=== PATIENT | female | born 1970 | race Caucasian/White ===

== ENCOUNTER 2017-08-31 01:27 | Inpatient (IN) | payer OTHER ==
--- NOTE | 2017-08-31 01:43 | PDOC ---
History of Present Illness - General History Source: Patient Exam Limitations: No Limitations - History of Present Illness Initial Comments: 08/31/17 02:13 The patient is a 47 year old female with past medical history of bilateral breast cancer and uterine cancer (w/ hysterectomy) presents to the emergency department with cold symptoms. The patient reports symptoms of dyspnea, excess thirst, dry cough. The patient reports baseline of chills but reports more than usual since the symptoms started. The patient reports not having much to eat today secondary to nothing taste right. The patient states her sons been sick recently. The patient has bilateral breast cancer and states has had 3 round of chemo, last chemo 7 days ago and states she has a scheduled mastectomy in December. Patient denies taking any medication. Patient denies headache and dizziness. Patient denies chest pain, diaphoresis, palpitations. Patient denies nausea, vomiting, diarrhea, and constipation. Patient denies dysuria, frequency, urgency, and hematuria. Allergies: None reported. Past Surgical History: hysterectomy. Social History: Non-smoker. Denies alcohol or drug use. PCP: Dr. Dee Miller <Melanie Desouza - Last Filed: 08/31/17 04:12> <Della Araiza - Last Filed: 08/31/17 04:33> - General Stated Complaint: FEVER Time Seen by Provider: 08/31/17 01:43 Past History <Melanie Desouza - Last Filed: 08/31/17 04:12> <Della Araiza - Last Filed: 08/31/17 04:33> - Past Medical History Allergies/Adverse Reactions: Allergies Allergy/AdvReac Type Severity Reaction Status Date / Time No Known Allergies Allergy Verified 08/31/17 01:46 Home Medications: Ambulatory Orders Alprazolam [Xanax] 0.5 mg PO DAILY 08/31/17 Dexamethasone [Decadron] 0 mg PO DAILY 08/31/17 Pegfilgrastim [Neulasta] 6 mg SQ Q7D 08/31/17 Review of Systems - Review of Systems Able to Perform ROS?: Yes Comments:: 08/31/17 02:17 GENERAL/CONSTITUTIONAL: (+) subjective fever and chills. No weakness. HEAD, EYES, EARS, NOSE AND THROAT: No change in vision. No ear pain or discharge. No sore throat. CARDIOVASCULAR: No chest pain (+) mild shortness of breath. RESPIRATORY: (+) cough, No wheezing, or hemoptysis. GASTROINTESTINAL: No nausea, vomiting, diarrhea or constipation. GENITOURINARY: No dysuria, frequency, or change in urination. MUSCULOSKELETAL: No joint or muscle swelling or pain. No neck or back pain. SKIN: No rash NEUROLOGIC: No headache, vertigo, loss of consciousness, or change in strength/ sensation. ENDOCRINE: (+) increased thirst. No abnormal weight change. HEMATOLOGIC/LYMPHATIC: No anemia, easy bleeding, or history of blood clots. ALLERGIC/IMMUNOLOGIC: No hives or skin allergy. <Melanie Desouza - Last Filed: 08/31/17 04:12> *Physical Exam - Vital Signs Last Vital Signs Temp Pulse Resp BP Pulse Ox 100.0 F H 150 H 22 107/83 93 L 08/31/17 01:46 08/31/17 01:46 08/31/17 01:46 08/31/17 01:46 08/31/17 01:46 - Physical Exam Comments: 08/31/17 02:17 GENERAL: Awake, alert, and fully oriented, in no acute distress HEAD: No signs of trauma EYES: PERRLA, EOMI, sclera anicteric, conjunctiva clear ENT: Auricles normal inspection, hearing grossly normal, nares patent, oropharynx clear without exudates. Moist mucosa NECK: Normal ROM, supple, no lymphadenopathy, JVD, or masses LUNGS:(+) crackles . Breath sounds equal, clear to auscultation bilaterally. No wheezes. HEART: Regular rate and rhythm, normal S1 and S2, no murmurs, rubs or gallops ABDOMEN: Soft, nontender, normoactive bowel sounds. No guarding, no rebound. No masses EXTREMITIES: Normal range of motion, no edema. No clubbing or cyanosis. No cords, erythema, or tenderness NEUROLOGICAL: Cranial nerves II through XII grossly intact. Normal speech, normal gait SKIN: Warm, Dry, normal turgor, no rashes or lesions noted. <Melanie Desouza - Last Filed: 08/31/17 04:12> ED Treatment Course - LABORATORY CBC & Chemistry Diagram: 08/31/17 02:10 08/31/17 02:10 <Melanie Desouza - Last Filed: 08/31/17 04:12> - LABORATORY CBC & Chemistry Diagram: 08/31/17 02:10 08/31/17 02:10 <Della Araiza - Last Filed: 08/31/17 04:33> Medical Decision Making - Medical Decision Making 08/31/17 02:28 vent. rate: 140 bpm TX interval: 122 ms QRS duration: 74 ms sinus tachycardia possible left atrial enlargement Documentation prepared by Melanie Desouza, acting as medical practitioners for Della Araiza MD. <Melanie Desouza - Last Filed: 08/31/17 04:12> - Medical Decision Making 08/31/17 03:27 Pt comes with fever. She is a breast cancer patient who received chemotherapy over the past few weeks. No other complaints. Pt is tachycardic and dehydrated. Hydrated and treated with antipyretics. Pt will be admitted for zosyn/vanc and further eval. 08/31/17 03:34 Pt's individual small group instructor Dr. Sol Lazcano ([facility] [place]) was called and electronic resources librarian doc will call back. Hospitalist agrees to the admission. 08/31/17 03:[address] Zapata, who tells me that pt's AST and ALT are elevated. Alk phos: was 198, so it is slightly bumped up. He will let Dr. Lazcano know pt is going to be admitted. 08/31/17 04:32 Pt went to a telemetry isolation bed. Viral respiratory panel sent from the ER. <Della Araiza - Last Filed: 08/31/17 04:33> *DC/Admit/Observation/Transfer - Attestations Scribe Attestion: 08/31/17 02:22 Documentation prepared by Melanie Desouza, acting as medical practitioners for Della Araiza MD. <Melanie Desouza - Last Filed: 08/31/17 04:12> - Discharge Dispostion Decision to Admit order: Yes <Della Araiza - Last Filed: 08/31/17 04:33> Diagnosis at time of Disposition: Neutropenic fever - Discharge Dispostion Condition at time of disposition: Guarded
[2017-08-31 01:49] VITALS: BMI 24.7
[2017-08-31] MEDS ORDERED: SODIUM CHLORIDE 0.9% 500 ML INFUS.BAG IV ONE (01:50)
[2017-08-31] MEDS ORDERED: ACETAMINOPHEN 1000 MG/100 ML VIAL (NON FORMULARY) IVPB ONE (01:55)
[2017-08-31 02:34] LABS: HEMATOCRIT 30.1 % (32.4-45.2); HEMOGLOBIN 10.8 GM/dL (10.7-15.3); MCH 30.4 pg (25.7-33.7); MCHC 35.8 g/dl (32.0-36.0); MEAN CELL VOLUME 84.9 fl (80-96); MEAN PLT VOLUME 7.1 fl (7.5-11.1); PLATELET COUNT 159 K/MM3 (134-434); RBC 3.54 M/mm3 (3.60-5.2); RDW 18.3 % (11.6-15.6)
[2017-08-31 03:06] LABS: ALBUMIN 3.6 g/dl (3.4-5.0); ALK PHOS 228 U/L (45-117); ANION GAP 9 (8-16); BILIRUBIN,TOTAL 0.4 mg/dL (0.2-1.0); BLOOD UREA NITROGEN 7 mg/dL (7-18); CALCIUM 8.1 mg/dL (8.5-10.1); CHLORIDE 103 mmol/L (98-107); CO2 23 mmol/L (21-32); CREATININE 0.6 mg/dL (0.55-1.02); GLUCOSE,RANDOM 158 mg/dL (74-106); POTASSIUM 4.3 mmol/L (3.5-5.1); SGOT/AST 128 U/L (15-37); SGPT/ALT 132 U/L (12-78); SODIUM 135 mmol/L (136-145); TOT PROT 6.7 g/dl (6.4-8.2)
[2017-08-31] MEDS ORDERED: VANCOMYCIN 1,000 MG in DEXTROSE 5%-WATER - 250 ML IVPB ONE (03:15)
[2017-08-31] MEDS ORDERED: PIPERACILLIN/TAZOB 3.375 GM 3.375 GM in DEXTROSE 5%-WATER - 50 ML IVPB ONE (03:15)
[2017-08-31] MEDS ORDERED: PIPERACILLIN/TAZOB 3.375 GM 3.375 GM/50 ML BAG IVPB ONE (03:16)
[2017-08-31] MEDS ORDERED: VANCOMYCIN 1 GRAM (PRE-DOCKED) 1,000 MG/250 ML BAG IVPB ONE (03:28)
[2017-08-31] MEDS ORDERED: SODIUM CHLORIDE 1,000 ML IV STA ×3 (03:36→03:37)
--- NOTE | 2017-08-31 03:42 | PN ---
Teaching Attending Note Name of Resident: Manjula Rivas ATTENDING PHYSICIAN STATEMENT I saw and evaluated the patient. I reviewed the resident's note and discussed the case with the resident. I agree with the resident's findings and plan as documented. SUBJECTIVE: 47 yo F with pmhx. of bilateral breast ca who presents dyspnea, cough, and chills. States she had chemo 7 days ago, and recieved Neulasta. Denies any Nausea, Vomiting, or diarrhea. No Dysuri, or urinary frequency, urgency, or hematouria. No chest pain or pressure. States she recieved Neulasta 27 hours after her last chemo. OBJECTIVE: Physical: VS: Vital Signs Period Temp Pulse Resp BP Sys/Lilly Pulse Ox Last 24 Hr 100.0 F 150 22 107/83 93 GEN: NAD, Resting in bed, AA0X3 HEENT: NCAT, PERRL, Throat without erythema or exudates CARD: RRR S1, S2 RESP: CTAB ABD: BSX4, NTD to palpation EXT: - C/C/E CBCD WBC 1.0 K/mm3 (4.0-10.0) L* 08/31/17 02:10 RBC 3.54 M/mm3 (3.60-5.2) L 08/31/17 02:10 Hgb 10.8 GM/dL (10.7-15.3) 08/31/17 02:10 Hct 30.1 % (32.4-45.2) L 08/31/17 02:10 MCV 84.9 fl (80-96) 08/31/17 02:10 MCHC 35.8 g/dl (32.0-36.0) 08/31/17 02:10 RDW 18.3 % (11.6-15.6) H 08/31/17 02:10 Plt Count 159 K/MM3 (134-434) 08/31/17 02:10 MPV 7.1 fl (7.5-11.1) L 08/31/17 02:10 CMP Sodium 135 mmol/L (136-145) L 08/31/17 02:10 Potassium 4.3 mmol/L (3.5-5.1) 08/31/17 02:10 Chloride 103 mmol/L (98-107) 08/31/17 02:10 Carbon Dioxide 23 mmol/L (21-32) 08/31/17 02:10 Anion Gap 9 (8-16) 08/31/17 02:10 BUN 7 mg/dL (7-18) 08/31/17 02:10 Creatinine 0.6 mg/dL (0.55-1.02) 08/31/17 02:10 Creat Clearance w eGFR > 60 (>60) 08/31/17 02:10 Random Glucose 158 mg/dL (74-106) H 08/31/17 02:10 Calcium 8.1 mg/dL (8.5-10.1) L 08/31/17 02:10 Total Bilirubin 0.4 mg/dL (0.2-1.0) 08/31/17 02:10 AST 128 U/L (15-37) H 08/31/17 02:10 ALT 132 U/L (12-78) H 08/31/17 02:10 Alkaline Phosphatase 228 U/L (45-117) H 08/31/17 02:10 Total Protein 6.7 g/dl (6.4-8.2) 08/31/17 02:10 Albumin 3.6 g/dl (3.4-5.0) 08/31/17 02:10 CXR: NO Acute Process EKG: S. Tach URINALYSIS- PENDING ANC: 690 ASSESSMENT AND PLAN: 47 F with hx. of bilateral breast cancer who presents with chills, cough, dyspnea being admitted for sepsis due to neutropenia and dyspnea 1.) Dyspnea - CTA Negative for PE/Acute process - ECHO- i 2.) Sepsis due to Neutropenia - ANC- Mod-Severe Neutropenia - Mcclain Cx - IVF - S/P Vanco/Zosyn in ED - Repeat LA - Start Cefepime 3.) Bilateral Breast Ca - Hold any further chemo - Care as per Onc. 4.) Transaminitis - Chronic as per pt. - Monitor 4.) Dvt P[facility]
--- NOTE | 2017-08-31 03:42 | HP ---
CHIEF COMPLAINT: fever, sob, cough PCP: Dr. Dee Miller Oncologist: Dr. Sol Lazcano, [facility] [place] HISTORY OF PRESENT ILLNESS: 47yo woman with PMH of endometrial Ca s/p MELONIE/BSO and bilateral breast Ca (dx 3mo) on doxirubicin and cyclophosphamide, last treatment 1 week ago (3rd cycle) , who presents with 1x fever, cough, and shortness of breath. Patient's received Neulasta and Decadron after last cycle. Patient reports feeling more tired for the past few days. Starting this morning, she woke up with shortness of breath, chills, unproductive cough, and generalized malaise. Patient's temperature at home was 101F. She contacted [facility] [place] and was told to go to ED. Patient's son was recently sick with URI symptoms. Patient denies chest pain, palpitations, or chest discomfort. No dysuria, hematuria, frequency or urgency. No abdominal pain, nausea, vomiting, diarrhea, or constipation. ER course was notable for: (1) VS: Rectal T 101.8, BP 107/77, HR 122, pSaO2 97% on RA (2) Received 1x Vanc and Zosyn (3) Respiratory Viral PCR panel sent Recent Travel: none PAST MEDICAL HISTORY: see HPI PAST SURGICAL HISTORY: total abdominal hysterectomy with bilateral salpingo-oopherectomy - Apr 2017 x2 breast reduction Social History: Smoking: never Alcohol: none Drugs: none Family History: no h/o cancer Allergies: No Known Allergies Allergy (Verified 08/31/17 01:46) HOME MEDICATIONS: Home Medications Medication Instructions Recorded Alprazolam [Xanax] 0.5 mg PO DAILY 08/31/17 Dexamethasone [Decadron] 0 mg PO DAILY 08/31/17 Pegfilgrastim [Neulasta] 6 mg SQ Q7D 08/31/17 REVIEW OF SYSTEMS CONSTITUTIONAL: +chills, generalized weakness Absent: fever, diaphoresis, malaise, loss of appetite, weight change HEENT: Absent: rhinorrhea, nasal congestion, throat pain, throat swelling, difficulty swallowing, mouth swelling, ear pain, eye pain, visual changes CARDIOVASCULAR: Absent: chest pain, syncope, palpitations, irregular heart rate, lightheadedness , peripheral edema RESPIRATORY: cough, shortness of breath Absent: dyspnea with exertion, orthopnea, wheezing, stridor, hemoptysis GASTROINTESTINAL: Absent: abdominal pain, abdominal distension, nausea, vomiting, diarrhea, constipation, melena, hematochezia GENITOURINARY: Absent: dysuria, frequency, urgency, hesitancy, hematuria, flank pain, genital pain MUSCULOSKELETAL: Absent: myalgia, arthralgia, joint swelling, back pain, neck pain SKIN: Absent: rash, itching, pallor HEMATOLOGIC/IMMUNOLOGIC: Absent: easy bleeding, easy bruising, lymphadenopathy, frequent infections ENDOCRINE: Absent: unexplained weight gain, unexplained weight loss, heat intolerance, cold intolerance NEUROLOGIC: Absent: headache, focal weakness or paresthesias, dizziness, unsteady gait, seizure, mental status changes, bladder or bowel incontinence PSYCHIATRIC: Absent: anxiety, depression, suicidal or homicidal ideation, hallucinations. PHYSICAL EXAMINATION Vital Signs - 24 hr 08/31/17 01:46 Temperature 100.0 F H Pulse Rate 150 H Respiratory 22 Rate Blood Pressure 107/83 O2 Sat by Pulse 93 L Oximetry (%) GENERAL: aaox3, nad HEENT: PERRL, sclera anicteric, conjunctiva clear, oropharynx clear without exudates, mmm NECK: supple, no nuchal rigidity LUNGS: CTAB, no wheezes/rales/rhonchi HEART: tachycardia, regular rhythm, normal s1/s2, no m/r/g ABDOMEN: soft, NTND UPPER EXTREMITIES: 2+ radial pulses, wwp, no edema LOWER EXTREMITIES: 2+ DP pulses, wwp, no edema NEUROLOGICAL: Cranial nerves II-XII intact. Normal speech. CBC, BMP 08/31/17 02:10 08/31/17 02:10 Hepatic Panel Total Bilirubin 0.4 mg/dL (0.2-1.0) 08/31/17 02:10 AST 128 U/L (15-37) H 08/31/17 02:10 ALT 132 U/L (12-78) H 08/31/17 02:10 Alkaline Phosphatase 228 U/L (45-117) H 08/31/17 02:10 Albumin 3.6 g/dl (3.4-5.0) 08/31/17 02:10 EKG: Sinus tachycardia, rate 140, normal axis and intervals, possible LAE, QTc 433 CXR: no acute cardiopulmonary pathology ASSESSMENT/PLAN: 47yo woman with PMH of endometrial Ca s/p MELONIE/BSO and bilateral Breast Ca on chemotherapy who presents with fever, sob, and tachycardia and found to have neutropenic fever. #neutropenic fever (ANC 698) of unclear etiology, last chemo 1 week ago + Neulasta -Mcclain-culture, Respiratory viral panel -ID consulted -Start Cefepime 2gm Q8H -IVF - 3L NS boluses then NS 150cc/hr -Neutropenic precautions -Repeat lactate #sob/tachycardia, Wells Score 2.5 -CTA negative for PE #bilateral Breast Ca -Current treatment at [facility] [place] (Dr. Lazcano) -Heme/Onc consulted #transaminitis, ALP 198 in 06/2017, PET last month negative for mets, per pt has chronically evaluated LFTs -Trend #FEN NS@ 150cc/hr hypoNa noted Neutropenic diet #PPX - Lovenox Plan d/w Dr. Jyoti Rivas MD PGY1 - Internal Medicine, Night Frame Straightener Visit type - Emergency Visit Emergency Visit: Yes ED Registration Date: 08/31/17 Care time: The patient presented to the Emergency Department on the above date and was hospitalized for further evaluation of their emergent condition. - New Patient This patient is new to me today: Yes Date on this admission: 09/01/17 - Critical Care Critical Care patient: No Hospitalist Screening - Colonoscopy Questionnaire Colonoscopy Questionnaire: Colonoscopy Questionnaire - Patient: 50 - 75 years old and never had a screening colonoscopy: No History of colon or rectal polyps, or CA: Unknown History of IBD, Crohn's disease or UC: Unknown History of abdominal radiation therapy as a child: Unknown - Relative: 1 with colon or rectal CA, or polyps at age 60 or younger: Unknown Colon or rectal CA diagnosed at age 45 or younger: Unknown Multiple relatives with colon or rectal CA: Unknown - Outcome: Screening Result: Negative Screen
[2017-08-31 04:00] LABS: PLATELET ESTIMATE NORMAL
[2017-08-31 04:01] LABS: URINE APPEARANCE CLEAR; URINE BILIRUBIN NEGATIVE (<2.0 mg/dL); URINE COLOR STRAW; URINE GLUCOSE (UA) NEGATIVE (NEGATIVE); URINE KETONE NEGATIVE (NEGATIVE); URINE LEUK ESTERASE NEGATIVE (NEGATIVE); URINE NITRITE NEGATIVE (NEGATIVE); URINE PROTEIN NEGATIVE (NEGATIVE); URINE UROBILINOGEN NEGATIVE mg/dL (0.2-1.0)
[2017-08-31 04:04] LABS: HCG,QUALITATIVE URINE NEGATIVE
[2017-08-31] MEDS ORDERED: ACETAMINOPHEN 325 MG TABLET (FP) PO PRN (05:19)
[2017-08-31] MEDS ORDERED: HEPARIN NA (PORCINE) 5,000 UNITS/ML 1ML VIAL SQ SCH (06:00)
--- NOTE | 2017-08-31 08:45 | PN ---
Teaching Attending Note Name of Resident: Rob Vail ATTENDING PHYSICIAN STATEMENT I saw and evaluated the patient. I reviewed the resident's note and discussed the case with the resident. I agree with the resident's findings and plan as documented. SUBJECTIVE:Case reviewed with resident Patient examined and interviewed History of endometrial cancer and breast CA now 1 week out for [place] [facility] [place]mitted with fever couph chills SOB and neutropenic. Got Neulasta previously. Currently denies headache rash Says experiencing mouth sores NO tick bite Only animal exposure is 3 cats LIves with her 2 kids OBJECTIVE: ASSESSMENT AND PLAN: Selected Entries 08/31/17 08/31/17 03:54 05:59 Temperature 101.8 F H Pulse Rate 104 H Respiratory 20 Rate Blood Pressure 90/58 O2 Sat by Pulse 97 Oximetry (%) HEENT Minimal mouth soreness no discreet ulcers seen and no thrush Neck Supple Lung Clear Cor S1 s2 Abd Soft surgical scar nontender Skin No rash Microbiology Laboratory Tests 08/31/17 08/31/17 08/31/17 02:10 02:10 02:10 WBC 1.0 L* Hgb 10.8 Hct 30.1 L Plt Count 159 Neutrophils % (Manual) 45.3 BUN 7 Creatinine 0.6 Lactic Acid 2.1 H Total Bilirubin 0.4 AST 128 H Alkaline Phosphatase 228 H Ur Leukocyte Esterase 08/31/17 03:45 WBC Hgb Hct Plt Count Neutrophils % (Manual) BUN Creatinine Lactic Acid Total Bilirubin AST Alkaline Phosphatase Ur Leukocyte Esterase Negative Assessment Neutropenic fever ? respiratory source though no PNA seen prelim on CT chest but good we got CT given low WBCs Endometrial CA and Breast CA Elevated LFTs ? Viral disease chemotherapy Plan Cultures ordered Viral panel PCR Sonogram liver SIGRID Vargas MD Problem List - Problems (1) Elevated LFTs Code(s): R79.89 - OTHER SPECIFIED ABNORMAL FINDINGS OF BLOOD CHEMISTRY (2) Neutropenic fever Code(s): D70.9 - NEUTROPENIA, UNSPECIFIED; R50.81 - FEVER PRESENTING WITH CONDITIONS CLASSIFIED ELSEWHERE (3) Endometrial cancer Code(s): C54.1 - MALIGNANT NEOPLASM OF ENDOMETRIUM (4) Breast CA Code(s): C50.919 - MALIGNANT NEOPLASM OF UNSP SITE OF UNSPECIFIED FEMALE BREAST
[2017-08-31 09:14] LABS: HEMOGLOBIN 9.1 GM/dL (10.7-15.3); MEAN CELL VOLUME 85.9 fl (80-96); MEAN PLT VOLUME 6.9 fl (7.5-11.1); PLATELET COUNT 157 K/MM3 (134-434); RBC 3.03 M/mm3 (3.60-5.2); RDW 18.7 % (11.6-15.6)
[2017-08-31 09:23] LABS: WHITE BLOOD COUNT 1.1 K/mm3 (4.0-10.0)
[2017-08-31] MEDS: LORATADINE 10 MG TABLET PO SCH (09:35)
[2017-08-31] MEDS: ALPRAZolam 0.25 MG TABLET PO SCH (09:35)
[2017-08-31] MEDS: ENOXAPARIN NA (PORCINE) 40 MG/0.4 ML DISP.SYRIN SQ SCH (09:35)
[2017-08-31 09:36] LABS: ANION GAP 5 (8-16); BLOOD UREA NITROGEN 5 mg/dL (7-18); CALCIUM 7.4 mg/dL (8.5-10.1); CHLORIDE 108 mmol/L (98-107); CO2 27 mmol/L (21-32); CREATININE 0.5 mg/dL (0.55-1.02); GLUCOSE,RANDOM 142 mg/dL (74-106); POTASSIUM 3.8 mmol/L (3.5-5.1); SGOT/AST 91 U/L (15-37); SGPT/ALT 119 U/L (12-78); SODIUM 140 mmol/L (136-145)
[2017-08-31 09:38] LABS: ALK PHOS 192 U/L (45-117); BILIRUBIN,TOTAL 0.5 mg/dL (0.2-1.0); TOT PROT 5.6 g/dl (6.4-8.2)
--- NOTE | 2017-08-31 09:59 | PN ---
Physical Exam: SUBJECTIVE: Patient seen and examined at bedside. OBJECTIVE: Vital Signs Period Temp Pulse Resp BP Sys/Lilly Pulse Ox Last 24 Hr 98.4 F-101.8 F 104-150 20-22 90-107/58-83 93-97 GENERAL: The patient is awake, alert, and fully oriented, in no acute distress. HEAD: Normal with no signs of trauma. EYES: PERRL, extraocular movements intact, sclera anicteric, conjunctiva clear. No ptosis. ENT: Ears normal, nares patent, oropharynx clear without exudates, moist mucous membranes. NECK: Trachea midline, full range of motion, supple. LUNGS: Breath sounds equal, clear to auscultation bilaterally, no wheezes, no crackles, no accessory muscle use. HEART: Regular rate and rhythm, S1, S2 without murmur, rub or gallop. ABDOMEN: Soft, nontender, nondistended, normoactive bowel sounds, no guarding, no rebound, no hepatosplenomegaly, no masses. EXTREMITIES: 2+ pulses, warm, well-perfused, no edema. NEUROLOGICAL: Cranial nerves II through XII grossly intact. Normal speech, gait not observed. PSYCH: Normal mood, normal affect. SKIN: Warm, dry, normal turgor, no rashes or lesions noted Laboratory Results - last 24 hr 08/31/17 08/31/17 08/31/17 02:10 02:10 02:10 WBC 1.0 L* RBC 3.54 L Hgb 10.8 Hct 30.1 L MCV 84.9 MCH 30.4 MCHC 35.8 RDW 18.3 H Plt Count 159 MPV 7.1 L Neutrophils % No Result Required. Neutrophils % (Manual) 45.3 Band Neutrophils % 24.5 Lymphocytes % No Result Required. Lymphocytes % (Manual) 22.6 Monocytes % Monocytes % (Manual) 2 L Eosinophils % Eosinophils % (Manual) 3.8 Basophils % Basophils % (Manual) 0.0 Myelocytes % (Man) 0 Promyelocytes % (Man) 0 Blast Cells % (Manual) 0 Nucleated RBC % 0 Metamyelocytes 0 Platelet Estimate Normal Sodium 135 L Potassium 4.3 Chloride 103 Carbon Dioxide 23 Anion Gap 9 BUN 7 Creatinine 0.6 Creat Clearance w eGFR > 60 Random Glucose 158 H Lactic Acid 2.1 H Calcium 8.1 L Total Bilirubin 0.4 AST 128 H ALT 132 H Alkaline Phosphatase 228 H Total Protein 6.7 Albumin 3.6 Beta HCG, Quant Urine Color Urine Appearance Urine pH Ur Specific Cushman Urine Protein Urine Glucose (UA) Urine Ketones Urine Blood Urine Nitrite Urine Bilirubin Urine Urobilinogen Ur Leukocyte Esterase Urine HCG, Qual 08/31/17 08/31/17 08/31/17 03:45 03:45 08:51 WBC 1.1 L* RBC 3.03 L Hgb 9.1 L D Hct 26.0 L MCV 85.9 MCH 30.0 MCHC 35.0 RDW 18.7 H Plt Count 157 MPV 6.9 L Neutrophils % Pulmonary Function Technician Neutrophils % (Manual) Band Neutrophils % Lymphocytes % Pulmonary Function Technician Lymphocytes % (Manual) Monocytes % Pulmonary Function Technician Monocytes % (Manual) Eosinophils % Pulmonary Function Technician Eosinophils % (Manual) Basophils % Pulmonary Function Technician Basophils % (Manual) Myelocytes % (Man) Promyelocytes % (Man) Blast Cells % (Manual) Nucleated RBC % Metamyelocytes Platelet Estimate Sodium Potassium Chloride Carbon Dioxide Anion Gap BUN Creatinine Creat Clearance w eGFR Random Glucose Lactic Acid Calcium Total Bilirubin AST ALT Alkaline Phosphatase Total Protein Albumin Beta HCG, Quant 1.1 Urine Color Straw Urine Appearance Clear Urine pH 6.0 Ur Specific [place] 1.005 Urine Protein Negative Urine Glucose (UA) Negative Urine Ketones Negative Urine Blood Negative Urine Nitrite Negative Urine Bilirubin Negative Urine Urobilinogen Negative Ur Leukocyte Esterase Negative Urine HCG, Qual Negative 08/31/17 08/31/17 08:51 08:51 WBC RBC Hgb Hct MCV MCH MCHC RDW Plt Count MPV Neutrophils % Neutrophils % (Manual) Band Neutrophils % Lymphocytes % Lymphocytes % (Manual) Monocytes % Monocytes % (Manual) Eosinophils % Eosinophils % (Manual) Basophils % Basophils % (Manual) Myelocytes % (Man) Promyelocytes % (Man) Blast Cells % (Manual) Nucleated RBC % Metamyelocytes Platelet Estimate Sodium 140 Potassium 3.8 Chloride 108 H Carbon Dioxide 27 Anion Gap 5 L BUN 5 L Creatinine 0.5 L Creat Clearance w eGFR > 60 Random Glucose 142 H Lactic Acid 2.1 H Calcium 7.4 L Total Bilirubin 0.5 D AST 91 H ALT 119 H Alkaline Phosphatase 192 H Total Protein 5.6 L Albumin 3.0 L Beta HCG, Quant Urine Color Urine Appearance Urine pH Ur Specific [place] Urine Protein Urine Glucose (UA) Urine Ketones Urine Blood Urine Nitrite Urine Bilirubin Urine Urobilinogen Ur Leukocyte Esterase Urine HCG, Qual Active Medications Generic Name Dose Route Start Last Admin Trade Name Freq PRN Reason Stop Dose Admin Alprazolam 0.5 mg 08/31/17 10:00 08/31/17 09:35 Xanax - PO 0.5 mg DAILY SHMUEL Administration Enoxaparin Sodium 40 mg 08/31/17 10:00 08/31/17 09:35 Lovenox - SQ 40 mg DAILY SHMUEL Administration Sodium Chloride 1,000 mls @ 150 mls/hr 08/31/17 03:45 Normal Saline - IV ASDIR SHMUEL Cefepime HCl 2 gm/ Dextrose 100 mls @ 100 mls/hr 08/31/17 10:00 08/31/17 09: 35 IVPB 08/31/17 10:59 100 mls/hr ONCE ONE Administration Protocol Cefepime HCl 2 gm/ Dextrose 100 mls @ 200 mls/hr 08/31/17 18:00 IVPB Q8H-IV SHMUEL Protocol Loratadine 10 mg 08/31/17 10:00 08/31/17 09:35 Claritin - PO 10 mg DAILY SHMUEL Administration ASSESSMENT/PLAN:
[2017-08-31] MEDS ORDERED: CEFEPIME 2 GM in DEXTROSE 5%-WATER 100 ML IVPB ONE (10:00)
--- NOTE | 2017-08-31 10:09 | CON.ID ---
Consult Consult Specialty:: Infectious disease Referred by:: Dr. Rvias Reason for Consultation:: Neutropenic fever - History of Present Illness Chief Complaint: cough, SOB, fever History of Present Illness: The patient is a 47 yo f w/ PMH B/l breast ca and endometrial ca s/p hysterectomy and b/l salpingooophrectomy who comes into the ed c/o fevrs and cough. Patient had a round of doxyrubicin and cyclophosphomide on thursday, 08/24. She received Neulasta and Decadron after this most recent cycle. On thursday, patient started to feel generalized malaize as well as cough and SOB. Her symptoms worsened and she developed a fever to 101 at home. Patient's son had a cough, but no fevers. Lives at home with her 2 children and . 3 cats in the house. Patient denies abdominal pain, diarrhea, chest pain, dysuria or urinary frequency. - Alcohol/Substance Use Hx Alcohol Use: No - Smoking History Smoking history: Never smoked Have you smoked in the past 12 months: No Home Medications - Allergies Allergies/Adverse Reactions: Allergies Allergy/AdvReac Type Severity Reaction Status Date / Time No Known Allergies Allergy Verified 08/31/17 01:46 - Home Medications Home Medications: Ambulatory Orders Alprazolam [Xanax] 0.5 mg PO DAILY 08/31/17 Dexamethasone [Decadron] 0 mg PO DAILY 08/31/17 Pegfilgrastim [Neulasta] 6 mg SQ Q7D 08/31/17 Review of Systems - Review of Systems Constitutional: reports: Chills, Fever, Malaise HENT: denies: Difficult Swallowing, Throat Pain Cardiovascular: reports: Shortness of Breath. denies: Chest Pain, Edema, Palpitations Respiratory: reports: Cough, SOB. denies: Hemoptysis Gastrointestinal: denies: Abdominal Pain, Bloating, Constipation, Diarrhea, Nausea, Vomiting Genitourinary: denies: Burning, Discharge, Dysuria, Flank Pain, Frequency Physical Exam Vital Signs: Vital Signs Temperature 98.4 F 08/31/17 05:59 Pulse Rate 104 H 08/31/17 05:59 Respiratory Rate 20 08/31/17 05:59 Blood Pressure 90/58 08/31/17 05:59 O2 Sat by Pulse Oximetry (%) 97 08/31/17 05:59 Constitutional: Yes: Well Nourished, No Distress, Calm HENT: Yes: Atraumatic, Normocephalic Cardiovascular: Yes: Regular Rate and Rhythm, S1, S2. No: JVD, Gallop, Murmur, Rub Respiratory: Yes: Regular, CTA Bilaterally Gastrointestinal: Yes: Normal Bowel Sounds, Soft Integumentary: Yes: Other (surgical scar) Neurological: Yes: Alert, Oriented Psychiatric: Yes: Alert, Oriented Labs: CBC, BMP 08/31/17 08:51 08/31/17 08:51 Assessment/Plan The patient is a 47 yo f w/ PMH multiple cancers on chemo fount to have a neutropenic fever. #neutropenic fever with unclear etiology -CXR, UA negative for source. -total WBC 1.0; ANC 698 -f/u BCx, Ucx, respiratory virus panel -urine for legionella antigens. -c/w cefipime 2g q8h #elevated LFTs -obtain RUQ US r/o billiary source of fever. -case d/w Dr. Vargas
--- NOTE | 2017-08-31 10:51 | EKG ---
Test Reason : Blood Pressure : / mmHG Vent. Rate : 140 BPM Atrial Rate : 140 BPM P-R Int : 122 ms QRS Dur : 074 ms QT Int : 284 ms P-R-T Axes : 043 021 021 degrees QTc Int : 433 ms SINUS TACHYCARDIA POSSIBLE LEFT ATRIAL ENLARGEMENT BORDERLINE ECG NO PREVIOUS ECGS AVAILABLE Confirmed by LIZANDRO MENDEZ MD ([id number]) on 08/31/2017 10:50:50 AM Referred By: Confirmed By:LIZANDRO MENDEZ MD
[2017-08-31 10:56] LABS: URINE APPEARANCE CLEAR; URINE BILIRUBIN NEGATIVE (<2.0 mg/dL); URINE COLOR STRAW; URINE GLUCOSE (UA) NEGATIVE (NEGATIVE); URINE KETONE NEGATIVE (NEGATIVE); URINE LEUK ESTERASE NEGATIVE (NEGATIVE); URINE NITRITE NEGATIVE (NEGATIVE); URINE PROTEIN NEGATIVE (NEGATIVE); URINE UROBILINOGEN NEGATIVE mg/dL (0.2-1.0)
[2017-08-31 11:02] LABS: PLATELET ESTIMATE DECREASED
[2017-08-31] MEDS: SODIUM CHLORIDE 1,000 ML IV SCH (13:43)
--- NOTE | 2017-08-31 14:30 | PN ---
<Gretchen Hunter - Last Filed: 08/31/17 17:10> Physical Exam: SUBJECTIVE: Patient seen and examined at bedside. States that her myalgias have continued and she has malaise, chills. Also c/o pruritis on scalp. Otherwise, pt denies MCLEAN, fever, SOB, or changes in urinary or bowel function. OBJECTIVE: Vital Signs Period Temp Pulse Resp BP Sys/Lilly Pulse Ox Last 24 Hr 98.4 F-101.8 F 104-150 18-22 90-108/58-83 93-97 GENERAL: The patient is awake, alert, and fully oriented, in no acute distress. Sitting comfortably HEAD: Normal with no signs of trauma. +dry skin on scalp EYES: PERRL, extraocular movements intact, sclera anicteric, conjunctiva clear. ENT: Ears normal, nares patent, oropharynx clear without exudates, moist mucous membranes. NECK: Trachea midline, supple. LUNGS: Breath sounds equal, clear to auscultation bilaterally, no wheezes, no crackles, no accessory muscle use. HEART: Regular rate and rhythm, S1, S2 without murmur, rub or gallop. ABDOMEN: Soft, nontender, nondistended, normoactive bowel sounds, no guarding, no rebound, no hepatosplenomegaly, no masses. EXTREMITIES: 2+ posterior tibial pulses, warm, well-perfused, no edema. NEUROLOGICAL: Cranial nerves II through XII grossly intact. Normal speech PSYCH: Normal mood, normal affect. SKIN: Warm, dry, normal turgor Laboratory Results - last 24 hr 08/31/17 08/31/17 08/31/17 02:10 02:10 02:10 WBC 1.0 L* RBC 3.54 L Hgb 10.8 Hct 30.1 L MCV 84.9 MCH 30.4 MCHC 35.8 RDW 18.3 H Plt Count 159 MPV 7.1 L Total Counted Neutrophils % No Result Required. Neutrophils % (Manual) 45.3 Band Neutrophils % 24.5 Lymphocytes % No Result Required. Lymphocytes % (Manual) 22.6 Monocytes % Monocytes % (Manual) 2 L Eosinophils % Eosinophils % (Manual) 3.8 Basophils % Basophils % (Manual) 0.0 Myelocytes % (Man) 0 Promyelocytes % (Man) 0 Blast Cells % (Manual) 0 Nucleated RBC % 0 Metamyelocytes 0 Platelet Estimate Normal Sodium 135 L Potassium 4.3 Chloride 103 Carbon Dioxide 23 Anion Gap 9 BUN 7 Creatinine 0.6 Creat Clearance w eGFR > 60 Random Glucose 158 H Lactic Acid 2.1 H Calcium 8.1 L Total Bilirubin 0.4 AST 128 H ALT 132 H Alkaline Phosphatase 228 H Total Protein 6.7 Albumin 3.6 Beta HCG, Quant Urine HCG, Qual 08/31/17 08/31/17 08/31/17 03:45 03:45 08:51 WBC 1.1 L* RBC 3.03 L Hgb 9.1 L D Hct 26.0 L MCV 85.9 MCH 30.0 MCHC 35.0 RDW 18.7 H Plt Count 157 MPV 6.9 L Total Counted 101 Neutrophils % Bus Monitor Neutrophils % (Manual) 60.4 D Band Neutrophils % 2.0 Lymphocytes % Bus Monitor Lymphocytes % (Manual) 30.7 D Monocytes % Bus Monitor Monocytes % (Manual) 7 D Eosinophils % Bus Monitor Eosinophils % (Manual) 0.0 D Basophils % Bus Monitor Basophils % (Manual) 0.0 Myelocytes % (Man) 0 Promyelocytes % (Man) 0 Blast Cells % (Manual) 0 Nucleated RBC % 3 H Metamyelocytes 0 Platelet Estimate Decreased Sodium Lactic Acid Albumin Beta HCG, Quant 1.1 Urine Color Straw Urine Appearance Clear Urine pH 6.0 Ur Specific Eastman 1.005 Urine Protein Negative Urine Glucose (UA) Negative Urine Ketones Negative Urine Blood Negative Urine Nitrite Negative Urine Bilirubin Negative Urine Urobilinogen Negative Ur Leukocyte Esterase Negative Urine HCG, Qual Negative 08/31/17 08/31/17 08/31/17 08:51 08:51 10:00 Platelet Estimate Sodium 140 Potassium 3.8 Chloride 108 H Carbon Dioxide 27 Anion Gap 5 L BUN 5 L Creatinine 0.5 L Creat Clearance w eGFR > 60 Random Glucose 142 H Lactic Acid 2.1 H Calcium 7.4 L Total Bilirubin 0.5 D AST 91 H ALT 119 H Alkaline Phosphatase 192 H Total Protein 5.6 L Albumin 3.0 L Beta HCG, Quant Urine Color Straw Urine Appearance Clear Urine pH 7.0 Ur Specific Eastman 1.010 Urine Protein Negative Urine Glucose (UA) Negative Urine Ketones Negative Urine Blood Negative Urine Nitrite Negative Urine Bilirubin Negative Urine Urobilinogen Negative Ur Leukocyte Esterase Negative Active Medications Generic Name Dose Route Start Last Admin Trade Name Freq PRN Reason Stop Dose Admin Alprazolam 0.5 mg 08/31/17 10:00 08/31/17 09:35 Xanax - PO 0.5 mg DAILY SHMUEL Administration Enoxaparin Sodium 40 mg 08/31/17 10:00 08/31/17 09:35 Lovenox - SQ 40 mg DAILY SHMUEL Administration Sodium Chloride 1,000 mls @ 150 mls/hr 08/31/17 03:45 08/31/17 13:43 Normal Saline - IV 150 mls/hr ASDIR SHMUEL Administration Cefepime HCl 2 gm/ Dextrose 100 mls @ 200 mls/hr 08/31/17 18:00 IVPB Q8H-IV SHMUEL Protocol Loratadine 10 mg 08/31/17 10:00 08/31/17 09:35 Claritin - PO 10 mg DAILY SHMUEL Administration Microbiology 08/31/17 10:00 Urine For Antigen Detection Legionella Antigen - Final 08/31/17 10:00 Urine For Antigen Detection Streptococcus pneumoniae Antigen (M - Final 08/31/17 04:50 Nasopharyngeal Swab Respiratory Virus (PCR) - Preliminary Radiology 08/31/17: CXR: no acute pathology 08/31/17: CTA: there is no gross evidence of pulmonary embolus within the main pulmonary artery and its proximal bifurcations, bilaterally. minimal atelectatic changes in the right lower lobe, laterally and in the posterior costophrenic angles without evidence of focal infiltrates ASSESSMENT/PLAN: 47 y/o F with PMH endometrial CA s/p MELONIE/SBO, bilateral breast CA (dx 3 months ago) on doxirubicin, cyclophosphamide, who presents to the ED c/o one day hx fever, cough, SOB. #Neutropenic fever of unclear etiology -may be 2/2 influenza, with myalgias. await resp viral PCR -initial total WBC count: 1.0, ANC 698 -repeat total WBC 1.1 -without fam hx. mother -afib, sisters without CA, sons healthy -oncologist at [facility] [place] -Dr. Sol Lazcano [phone]; message left for follow-up -Preliminary Legionella Ag, strep pneumo (-) -F/u resp viral PCR -F/u blood cx, urine cx - pending -ID consult - seen by Dr. Vargas -continue Cefepime 2gm IVPB q8h -Neutropenic precautions #sinus tach, r/o PE -CTA (-) -tele monitoring #Transaminitis -AST 128, ALT 132, ALP 228 initially. Improved to 91, 119, 192 -F/u hepatic sono ; r/o biliary duct pathology as pt immunocompromised, may not be responding -may be 2/2 chemotherapy. on doxirubicin, cyclophosphamide -continue to f/u CMP -F/u GGT to r/o bone mets (690). Elevated ALP #Hx endometrial CA s/p MELONIE/SBO, bilateral breast CA -Continue tx as per [facility]- doxirubicin, cyclophosphamide -Heme-onc consult- Dr. Cardoso #F/E/N NS 150 cc/hr Continue to monitor lytes Neutropenic diet #PPX DVT: Lovenox 40 mg SQ daily #Dispo Continued monitoring on tele Visit type - Emergency Visit Emergency Visit: No - New Patient This patient is new to me today: Yes Date on this admission: 08/31/17 - Critical Care Critical Care patient: No <Celi Marti - Last Filed: 08/31/17 20:32> Physical Exam: Patient is comfortable, with neutopenic fever, continue current therapy Cefepime 2gm daily, ID on the case. Vital Signs Temperature 98.4 F 08/31/17 18:00 Pulse Rate 90 08/31/17 18:00 Respiratory Rate 18 08/31/17 18:00 Blood Pressure 111/68 08/31/17 18:00 O2 Sat by Pulse Oximetry (%) 97 08/31/17 09:00 CBCD WBC 1.1 K/mm3 (4.0-10.0) L* 08/31/17 08:51 RBC 3.03 M/mm3 (3.60-5.2) L 08/31/17 08:51 Hgb 9.1 GM/dL (10.7-15.3) L D 08/31/17 08:51 Hct 26.0 % (32.4-45.2) L 08/31/17 08:51 MCV 85.9 fl (80-96) 08/31/17 08:51 MCHC 35.0 g/dl (32.0-36.0) 08/31/17 08:51 RDW 18.7 % (11.6-15.6) H 08/31/17 08:51 Plt Count 157 K/MM3 (134-434) 08/31/17 08:51 MPV 6.9 fl (7.5-11.1) L 08/31/17 08:51 CMP Sodium 140 mmol/L (136-145) 08/31/17 08:51 Potassium 3.8 mmol/L (3.5-5.1) 08/31/17 08:51 Chloride 108 mmol/L (98-107) H 08/31/17 08:51 Carbon Dioxide 27 mmol/L (21-32) 08/31/17 08:51 Anion Gap 5 (8-16) L 08/31/17 08:51 BUN 5 mg/dL (7-18) L 08/31/17 08:51 Creatinine 0.5 mg/dL (0.55-1.02) L 08/31/17 08:51 Creat Clearance w eGFR > 60 (>60) 08/31/17 08:51 Random Glucose 142 mg/dL (74-106) H 08/31/17 08:51 Calcium 7.4 mg/dL (8.5-10.1) L 08/31/17 08:51 Total Bilirubin 0.5 mg/dL (0.2-1.0) D 08/31/17 08:51 AST 91 U/L (15-37) H 08/31/17 08:51 ALT 119 U/L (12-78) H 08/31/17 08:51 Alkaline Phosphatase 192 U/L (45-117) H 08/31/17 08:51 Total Protein 5.6 g/dl (6.4-8.2) L 08/31/17 08:51 Albumin 3.0 g/dl (3.4-5.0) L 08/31/17 08:51 Current Medications Generic Name Dose Route Start Last Admin Trade Name Freq PRN Reason Stop Dose Admin Alprazolam 0.5 mg 08/31/17 10:00 08/31/17 09:35 Xanax - PO 0.5 mg DAILY SHMUEL Administration Enoxaparin Sodium 40 mg 08/31/17 10:00 08/31/17 09:35 Lovenox - SQ 40 mg DAILY SHMUEL Administration Sodium Chloride 1,000 mls @ 150 mls/hr 08/31/17 03:45 08/31/17 13:43 Normal Saline - IV 150 mls/hr ASDIR SHMUEL Administration Cefepime HCl 2 gm/ Dextrose 100 mls @ 200 mls/hr 08/31/17 18:00 08/31/17 17: 53 IVPB 200 mls/hr Q8H-IV SHMUEL Administration Protocol Loratadine 10 mg 08/31/17 10:00 08/31/17 09:35 Claritin - PO 10 mg DAILY SHMUEL Administration Home Medications Medication Instructions Recorded Alprazolam [Xanax] 0.5 mg PO DAILY 08/31/17 Dexamethasone [Decadron] 0 mg PO DAILY 08/31/17 Pegfilgrastim [Neulasta] 6 mg SQ Q7D 08/31/17
[2017-08-31 15:20] LABS: GAMMA GLUTAMYL TRANSPEPTIDASE 690 U/L (5-85)
[2017-08-31] MEDS: CEFEPIME 2 GM in DEXTROSE 5%-WATER 100 ML IVPB SCH (17:53)
[2017-08-31] MEDS ORDERED: CEFEPIME 2 GM in DEXTROSE 5%-WATER 100 ML IVPB SCH (18:00)
--- NOTE | 2017-08-31 22:56 | CONSULT ---
Consult - text type - Consultation Consultation Note: 47yo woman with recent h/o supracervical hysterctomy for removal of fibroid, pathology showed uterine cancer with + margins per patient, s/p resection of cervix and BSO as patient was diagnosed just around that time with bilateral breast Ca ( noted palpable lump in lt. breast). She started AC in mid July and is currently C3,D8, and presents with 1x fever , cough, and shortness of breath. Patient's received Neulasta and Decadron after last cycle. Patient reports feeling more tired for the past few days. Starting this morning, she woke up with shortness of breath, chills, unproductive cough, and generalized malaise. Patient's temperature at home was 101F. PAST SURGICAL HISTORY: supracervical hysterectomy 05/07 followed by resectuon of cx/lynphnode dissection and with bilateral salpingo-oopherectomy x2 breast reduction Social History: Smoking: never Alcohol: none Drugs: none Family History: no h/o cancer Allergies: No Known Allergies Allergy (Verified 08/31/17 01:46) HOME MEDICATIONS: Home Medications Medication Instructions Recorded Alprazolam [Xanax] 0.5 mg PO DAILY 08/31/17 Dexamethasone [Decadron] 0 mg PO DAILY 08/31/17 Pegfilgrastim [Neulasta] 6 mg SQ Q7D 08/31/17 PHYSICAL EXAMINATION Vital Signs - 24 hr 08/31/17 01:46 Temperature 100.0 F H Pulse Rate 150 H Respiratory 22 Rate Blood Pressure 107/83 O2 Sat by Pulse 93 L Oximetry (%) GENERAL: aaox3, nad HEENT:, sclera anicteric, conjunctiva clear, oropharynx clear without exudates, mmm NECK: supple, no nuchal rigidity LUNGS: CTAB, no wheezes/rales/rhonchi HEART: tachycardia, regular rhythm, normal s1/s2, no m/r/g ABDOMEN: soft, NTND CBC, BMP 08/31/17 02:10 08/31/17 02:10 Hepatic Panel Total Bilirubin 0.4 mg/dL (0.2-1.0) 08/31/17 02:10 AST 128 U/L (15-37) H 08/31/17 02:10 ALT will 132 U/L (12-78) H 08/31/17 02:10 Alkaline Phosphatase 228 U/L (45-117) H 08/31/17 02:10 Albumin 3.6 g/dl (3.4-5.0) 08/31/17 02:10 ASSESSMENT/PLAN: 47yo woman with recent h/o supracervical hysterctomy for removal of fibroid 2017, pathology showed uterine cancer with + margins per patient, s/p resection of cervix and BSO in 07/05. Also she was diagnosed just around that time with bilateral breast Ca ( noted palpable lump in lt. breast). She started AC in mid July and is currently C3,D8, and presents with 1x fever , cough, and shortness of breath. Patient's received Neulasta and Decadron after last cycle. She is scheduled for C4 AC next week followed by THP comes in with fever/URI /cough ? viral. also with transaminitis ANC 660 On empiric cefepime monitor CBC expect WBC to improve by D11 will follow
[2017-09-01] MEDS ORDERED: PT OWN MED DRAWER 7, Y5N ONE (00:49)
[2017-09-01] MEDS: CEFEPIME 2 GM in DEXTROSE 5%-WATER 100 ML IVPB SCH ×3 (01:09→17:23)
[2017-09-01 07:03] LABS: HEMATOCRIT 26.3 % (32.4-45.2); HEMOGLOBIN 9.1 GM/dL (10.7-15.3); MCH 29.8 pg (25.7-33.7); MCHC 34.7 g/dl (32.0-36.0); MEAN PLT VOLUME 7.4 fl (7.5-11.1); PLATELET COUNT 165 K/MM3 (134-434); RBC 3.06 M/mm3 (3.60-5.2); RDW 18.6 % (11.6-15.6)
[2017-09-01 07:29] LABS: ANION GAP 6 (8-16); BLOOD UREA NITROGEN 4 mg/dL (7-18); CALCIUM 7.9 mg/dL (8.5-10.1); CHLORIDE 113 mmol/L (98-107); CO2 25 mmol/L (21-32); GLUCOSE,RANDOM 92 mg/dL (74-106); SODIUM 144 mmol/L (136-145)
[2017-09-01 07:31] LABS: CREATININE 0.4 mg/dL (0.55-1.02)
--- NOTE | 2017-09-01 08:03 | PN ---
Physical Exam: SUBJECTIVE: Patient seen and examined at bedside.No acute events overnight; afebrile. Last recorded fever 08/31/17; 101.8F tmax. Today, pt c/o mild generalized MCLEAN, nonproductive cough, and pain at LUE IV site. Otherwise, denies SOB, chest or abdominal pain, or changes in urinary or bowel function. OBJECTIVE: Vital Signs Period Temp Pulse Resp BP Sys/Lilly Pulse Ox Last 24 Hr 98.0 F-99.4 F 88-105 18-20 97-111/63-70 97-98 GENERAL: The patient is resting in bed, coughing. awake, alert, and fully oriented, in no acute distress. HEAD: Normal with no signs of trauma. EYES: PERRL, extraocular movements intact, sclera anicteric, conjunctiva clear. ENT: Ears normal, nares patent, oropharynx clear without exudates, moist mucous membranes. NECK: Trachea midline, supple. LUNGS: Breath sounds equal, clear to auscultation bilaterally, no wheezes, no crackles, no accessory muscle use. +poor inspiratory effort HEART: tachycardic rate and rhythm, S1, S2 without murmur, rub or gallop. ABDOMEN: Soft, nontender, nondistended, normoactive bowel sounds, no guarding, no rebound. EXTREMITIES: 2+ posterior tibial pulses, warm, well-perfused, no edema. NEUROLOGICAL: Cranial nerves II through XII grossly intact. Normal speech PSYCH: Normal mood, normal affect. SKIN: Warm, dry, normal turgor. +bruising at LUE IV site Laboratory Results - last 24 hr 08/31/17 08/31/17 08/31/17 08:51 08:51 08:51 WBC 1.1 L* RBC 3.03 L Hgb 9.1 L D Hct 26.0 L MCV 85.9 MCH 30.0 MCHC 35.0 RDW 18.7 H Plt Count 157 MPV 6.9 L Total Counted 101 Neutrophils % [place] Neutrophils % (Manual) 60.4 D Band Neutrophils % 2.0 Lymphocytes % [place] Lymphocytes % (Manual) 30.7 D Monocytes % [place] Monocytes % (Manual) 7 D Eosinophils % [place] Eosinophils % (Manual) 0.0 D Basophils % [place] Basophils % (Manual) 0.0 Myelocytes % (Man) 0 Promyelocytes % (Man) 0 Blast Cells % (Manual) 0 Nucleated RBC % 3 H Metamyelocytes 0 Platelet Estimate Decreased Sodium 140 Potassium 3.8 Chloride 108 H Carbon Dioxide 27 Anion Gap 5 L BUN 5 L Creatinine 0.5 L Creat Clearance w eGFR > 60 Random Glucose 142 H Lactic Acid 2.1 H Calcium 7.4 L Total Bilirubin 0.5 D GGT 690 H AST 91 H ALT 119 H Alkaline Phosphatase 192 H Total Protein 5.6 L Albumin 3.0 L Urine Color Ur Leukocyte Esterase Active Medications Generic Name Dose Route Start Last Admin Trade Name Freq PRN Reason Stop Dose Admin Alprazolam 0.5 mg 08/31/17 10:00 08/31/17 09:35 Xanax - PO 0.5 mg DAILY SHMUEL Administration Enoxaparin Sodium 40 mg 08/31/17 10:00 08/31/17 09:35 Lovenox - SQ 40 mg DAILY SHMUEL Administration Sodium Chloride 1,000 mls @ 150 mls/hr 08/31/17 03:45 08/31/17 13:43 Normal Saline - IV 150 mls/hr ASDIR SHMUEL Administration Cefepime HCl 2 gm/ Dextrose 100 mls @ 200 mls/hr 08/31/17 18:00 09/01/17 01: 09 IVPB 200 mls/hr Q8H-IV SHMUEL Administration Protocol Loratadine 10 mg 08/31/17 10:00 08/31/17 09:35 Claritin - PO 10 mg DAILY SHMUEL Administration Microbiology 08/31/17 10:00 Urine For Antigen Detection Legionella Antigen - Final 08/31/17 10:00 Urine For Antigen Detection Streptococcus pneumoniae Antigen (M - Final 08/31/17 04:50 Nasopharyngeal Swab Respiratory Virus (PCR) - Preliminary 08/31/17 02:10 Blood - Peripheral Venous Blood Culture - Preliminary NO GROWTH OBTAINED AFTER 24 HOURS, INCUBATION TO CONTINUE FOR 4 DAYS. 08/31/17 02:10 Blood - Peripheral Venous Blood Culture - Preliminary NO GROWTH OBTAINED AFTER 24 HOURS, INCUBATION TO CONTINUE FOR 4 DAYS. Radiology 08/31/17: CXR: no acute pathology 08/31/17: CTA: there is no gross evidence of pulmonary embolus within the main pulmonary artery and its proximal bifurcations, bilaterally. minimal atelectatic changes in the right lower lobe, laterally and in the posterior costophrenic angles without evidence of focal infiltrates 09/01/17: Abd sono: mild fatty infiltratino liver vs. hepatocellular disease. Correlate with liver enzymes. no gallstones, GB distended without intraluminal stones or thickening of wall. no intra or extrahepatic bile duct dilation is seen. ASSESSMENT/PLAN: 47 y/o F with PMH endometrial CA s/p MELONIE/SBO, bilateral breast CA (dx 3 months ago) on doxirubicin, cyclophosphamide, who presents to the ED c/o one day hx fever, cough, SOB. #Neutropenic fever of unclear etiology -may be 2/2 influenza, with myalgias, nonproductive cough. await resp viral PCR -?PNA however without acute changes on CXR, radio can take time to develop - clinical sx present early -initial total WBC count: 1.0, ANC 698 (08/30), 1.1>1.5 -oncologist at [facility] [place] -Dr. Sol Lazcano [phone] -Preliminary Legionella Ag, strep pneumo (-) -F/u resp viral PCR -Blood cx (-) -urine cx (-) -ID consult - seen by Dr. Vargas -continue Cefepime 2gm IVPB q8h (Today is Day 2) -Neutropenic precautions #sinus tach, r/o PE -CTA (-) -tele monitoring #Transaminitis -improving LFTs. AST 51, ALT 114, ALP 163 -Hepatic sono: mild fatty infiltration of liver vs. hepatocellular dz. correlate with liver enzymes. no gallstones. GB distended without intraluminal stones or thickening of wall. no intra or extrahepatic bile duct dilation is seen. -may be 2/2 chemotherapy. on doxirubicin, cyclophosphamide -continue to f/u CMP -GGT (690). Elevated ALP; less likely bone mets. #Hx endometrial CA s/p MELONIE/SBO, bilateral breast CA -Continue tx as per [facility] [place]- doxirubicin, cyclophosphamide. Next cycle next wk -Heme-onc consult- Dr. Cardoso #F/E/N NS 150 cc/hr Continue to monitor lytes Neutropenic diet #PPX DVT: Lovenox 40 mg SQ daily #Dispo Continued monitoring on tele Visit type - Emergency Visit Emergency Visit: No - New Patient This patient is new to me today: No - Critical Care Critical Care patient: No
[2017-09-01 08:54] LABS: WHITE BLOOD COUNT 1.5 K/mm3 (4.0-10.0)
[2017-09-01 09:19] LABS: ALK PHOS 163 U/L (45-117); SGOT/AST 51 U/L (15-37); SGPT/ALT 114 U/L (12-78)
--- NOTE | 2017-09-01 09:22 | PN ---
Teaching Attending Note Name of Resident: Gretchen Hunter ATTENDING PHYSICIAN STATEMENT I saw and evaluated the patient. I reviewed the resident's note and discussed the case with the resident. I agree with the resident's findings and plan as documented. SUBJECTIVE: Patient is comfortable with no acute distress, c/o having headache. OBJECTIVE: Vital Signs Temperature 98.0 F 09/01/17 02:50 Pulse Rate 88 09/01/17 02:50 Respiratory Rate 20 09/01/17 02:50 Blood Pressure 97/63 09/01/17 02:50 O2 Sat by Pulse Oximetry (%) 98 08/31/17 21:00 CBCD WBC 1.5 K/mm3 (4.0-10.0) L* D 09/01/17 06:35 RBC 3.06 M/mm3 (3.60-5.2) L 09/01/17 06:35 Hgb 9.1 GM/dL (10.7-15.3) L 09/01/17 06:35 Hct 26.3 % (32.4-45.2) L 09/01/17 06:35 MCV 86.0 fl (80-96) 09/01/17 06:35 MCHC 34.7 g/dl (32.0-36.0) 09/01/17 06:35 RDW 18.6 % (11.6-15.6) H 09/01/17 06:35 Plt Count 165 K/MM3 (134-434) 09/01/17 06:35 MPV 7.4 fl (7.5-11.1) L 09/01/17 06:35 CMP Sodium 144 mmol/L (136-145) 09/01/17 06:35 Potassium 4.0 mmol/L (3.5-5.1) 09/01/17 06:35 Chloride 113 mmol/L (98-107) H 09/01/17 06:35 Carbon Dioxide 25 mmol/L (21-32) 09/01/17 06:35 Anion Gap 6 (8-16) L 09/01/17 06:35 BUN 4 mg/dL (7-18) L 09/01/17 06:35 Creatinine 0.4 mg/dL (0.55-1.02) L 09/01/17 06:35 Creat Clearance w eGFR > 60 (>60) 08/31/17 08:51 Random Glucose 92 mg/dL (74-106) 09/01/17 06:35 Calcium 7.9 mg/dL (8.5-10.1) L 09/01/17 06:35 Total Bilirubin 0.5 mg/dL (0.2-1.0) D 08/31/17 08:51 AST 91 U/L (15-37) H 08/31/17 08:51 ALT 119 U/L (12-78) H 08/31/17 08:51 Alkaline Phosphatase 192 U/L (45-117) H 08/31/17 08:51 Total Protein 5.6 g/dl (6.4-8.2) L 08/31/17 08:51 Albumin 3.0 g/dl (3.4-5.0) L 08/31/17 08:51 Current Medications Generic Name Dose Route Start Last Admin Trade Name Freq PRN Reason Stop Dose Admin Alprazolam 0.5 mg 08/31/17 10:00 08/31/17 09:35 Xanax - PO 0.5 mg DAILY [facility] Administration Enoxaparin Sodium 40 mg 08/31/17 10:00 08/31/17 09:35 Lovenox - SQ 40 mg DAILY [facility] Administration Sodium Chloride 1,000 mls @ 150 mls/hr 08/31/17 03:45 08/31/17 13:43 Normal Saline - IV 150 mls/hr ASDIR [facility] Administration Cefepime HCl 2 gm/ Dextrose 100 mls @ 200 mls/hr 08/31/17 18:00 09/01/17 01: 09 IVPB 200 mls/hr Q8H-IV [facility]MUEL Administration Protocol Loratadine 10 mg 08/31/17 10:00 08/31/17 09:35 Claritin - PO 10 mg DAILY [facility] Administration Home Medications Medication Instructions Recorded Alprazolam [Xanax] 0.5 mg PO DAILY 08/31/17 Dexamethasone [Decadron] 0 mg PO DAILY 08/31/17 Pegfilgrastim [Neulasta] 6 mg SQ Q7D 08/31/17 Microbiology 08/31/17 02:10 Blood - Peripheral Venous Blood Culture - Preliminary NO GROWTH OBTAINED AFTER 24 HOURS, INCUBATION TO CONTINUE FOR 4 DAYS. 08/31/17 02:10 Blood - Peripheral Venous Blood Culture - Preliminary NO GROWTH OBTAINED AFTER 24 HOURS, INCUBATION TO CONTINUE FOR 4 DAYS. 08/31/17 10:00 Urine For Antigen Detection Legionella Antigen - Final 08/31/17 10:00 Urine For Antigen Detection Streptococcus pneumoniae Antigen (M - Final 08/31/17 04:50 Nasopharyngeal Swab Respiratory Virus (PCR) - Preliminary PE: per resident's note ASSESSMENT AND PLAN: Patient is a 47 y/o F with PMHx of endometrial CA s/p MELONIE/SBO, bilateral breast CA (dx 3 months ago) on doxirubicin, cyclophosphamide, who presents to the ED c/o one day hx fever, cough, SOB. #Neutropenic fever continue IVF Cefepime day #2, ID on the case , patient is s/ p chemo therapy with recent dx of BL breast cancer, gets treatment at [place]. On IV Cefepime continue. Neutropenic precautions, neutorpenic diet . hem/onc consult #Transaminitis most likely due chemo that she received , will hydrate her , Elevated Alk phos, GGT pending to make sure does have have bone mets. #Hx endometrial CA s/p MELONIE/SBO, bilateral breast CA. gets tx at [place] s/p doxirubicin, cyclophosphamide, Heme-onc consult- Dr. Cardoso DVT Px: Lovenox
[2017-09-01] MEDS: ENOXAPARIN NA (PORCINE) 40 MG/0.4 ML DISP.SYRIN SQ SCH (09:40)
[2017-09-01] MEDS: ALPRAZolam 0.25 MG TABLET PO SCH (09:40)
[2017-09-01] MEDS: LORATADINE 10 MG TABLET PO SCH (09:41)
[2017-09-01] MEDS: SODIUM CHLORIDE 1,000 ML IV SCH ×2 (09:41→12:20)
--- NOTE | 2017-09-01 10:15 | PN ---
Progress Note, Physician History of Present Illness: ID Follow up. Patient's symptoms unchanged today; she states she is coughing more often now, but is still unable to bring up sputum. Patient afebrile overnight. - Current Medication List Current Medications: Active Medications Alprazolam (Xanax -) 0.5 mg PO DAILY [facility] Last Admin: 09/01/17 09:40 Dose: 0.5 mg Enoxaparin Sodium (Lovenox -) 40 mg SQ DAILY [facility] Last Admin: 09/01/17 09:40 Dose: 40 mg Sodium Chloride (Normal Saline -) 1,000 mls @ 150 mls/hr IV ASDIR [facility] Last Admin: 09/01/17 09:41 Dose: 150 mls/hr Cefepime HCl 2 gm/ Dextrose 100 mls @ 200 mls/hr IVPB Q8H-IV [facility] PRN Reason: Protocol Last Admin: 09/01/17 09:40 Dose: 200 mls/hr Loratadine (Claritin -) 10 mg PO DAILY [facility] Last Admin: 09/01/17 09:41 Dose: 10 mg - Objective Vital Signs: Vital Signs Temperature 98.0 F 09/01/17 02:50 Pulse Rate 88 09/01/17 02:50 Respiratory Rate 20 09/01/17 02:50 Blood Pressure 97/63 09/01/17 02:50 O2 Sat by Pulse Oximetry (%) 98 08/31/17 21:00 Constitutional: Yes: Well Nourished, No Distress, Calm HENT: Yes: Atraumatic, Normocephalic Cardiovascular: Yes: Regular Rate and Rhythm, S1, S2. No: JVD, Gallop, Murmur, Rub Respiratory: Yes: Regular, CTA Bilaterally Gastrointestinal: Yes: Normal Bowel Sounds, Soft. No: Tenderness Genitourinary: Yes: Other (Post-hysterectomy scar seen. Well healed, no signs of infection.) Edema: No Neurological: Yes: Alert, Oriented Psychiatric: Yes: Alert, Oriented, Other (tearful) Labs: CBC, BMP 09/01/17 06:35 09/01/17 06:35 Assessment/Plan The patient is a 47 yo f w/ PMH multiple cancers on chemo fount to have a neutropenic fever. #neutropenic fever with unclear etiology -CXR, UA negative for source. -total WBC increased 1.0 -> 1.5 -f/u respiratory virus panel -Bcx NGTD -UCx negative -urine for legionella antigens negative -c/w cefipime 2g q8h #elevated LFTs -f/u RUQ US shows fatty infiltration & no signs of infection. -case d/w Dr. Mcleod
[2017-09-01] MEDS ORDERED: ACETAMINOPHEN 325 MG TABLET (FP) PO PRN (11:53)
[2017-09-01] MEDS: guaiFENesin/CODEINE 5 ML UNIT-DOSE CUPS PO PRN ×2 (12:19→21:13)
[2017-09-01] MEDS: VITAMINS A AND D TOPICAL OINTMENT 60 GM TUBE TP SCH ×2 (13:13→21:12)
[2017-09-01 14:31] LABS: PLATELET ESTIMATE NORMAL
--- NOTE | 2017-09-01 15:53 | MSN ---
Progress Note (SOAP) - Subjective Chief Complaint: Neutropenia and Fever History of Present Illness: Patient is a 47 year old female with past medical hx of endometrial ca (s/p MELONIE with BSO) and breast cancer that was admitted for neutropenia with concomitant fever, cough, SOB, and tachycardia. Patient states that she is coughing more today than previous days but the cough continues to be non productive in character. The patient is also complaining of bruising, redness and tenderness over the left antecubital fossa that she noticed after the placement of an IV site for CT contrast. The patient states that it hurts when she moves her arm and touches the area. The patient claims to have alternating feelings of being hot and cold but denies any fever or chills. The patient is also complaining of a diffuse headache that started this morning. Review of symptoms is negative for N/V, chest pain, abdominal pain, or diarrhea. - Current Medications Current Medications: Active Medications Acetaminophen (Tylenol -) 650 mg PO Q6H PRN PRN Reason: PAIN Last Admin: 09/01/17 12:19 Dose: 650 mg Alprazolam (Xanax -) 0.5 mg PO DAILY [facility] Last Admin: 09/01/17 09:40 Dose: 0.5 mg Enoxaparin Sodium (Lovenox -) 40 mg SQ DAILY [facility] Last Admin: 09/01/17 09:40 Dose: 40 mg Guaifenesin/Codeine Phosphate (Robitussin Ac -) 5 ml PO TID PRN PRN Reason: COUGH Last Admin: 09/01/17 12:19 Dose: 5 ml Cefepime HCl 2 gm/ Dextrose 100 mls @ 200 mls/hr IVPB Q8H-IV [facility] PRN Reason: Protocol Last Admin: 09/01/17 09:40 Dose: 200 mls/hr Sodium Chloride (Normal Saline -) 1,000 mls @ 75 mls/hr IV ASDIR [facility] Last Admin: 09/01/17 12:20 Dose: 75 mls/hr Loratadine (Claritin -) 10 mg PO DAILY [facility] Last Admin: 09/01/17 09:41 Dose: 10 mg Vitamin A/Vitamin D (Vitamin A & D Top Oint -) 1 applic TP BID [facility] Last Admin: 09/01/17 13:13 Dose: 1 applic - Objective Vital Signs: Vital Signs Temperature 98.8 F 09/01/17 15:00 Pulse Rate 76 09/01/17 15:00 Respiratory Rate 18 09/01/17 15:00 Blood Pressure 102/70 09/01/17 15:00 O2 Sat by Pulse Oximetry (%) 98 08/31/17 21:00 Constitutional: Yes: Diaphoresis, Mild Distress, Thin Eyes: Yes: Conjunctiva Clear, EOM Intact, PERRL. No: Sclera Icterus HENT: Yes: Atraumatic, Normocephalic, Other (dry skin noted diffusely on the scalp ) Neck: Yes: Supple, Trachea Midline Cardiovascular: Yes: Tachycardia, S1, S2 Respiratory: Yes: Regular, CTA Bilaterally Gastrointestinal: Yes: Normal Bowel Sounds, Soft. No: Pulsatile Mass Extremities: Yes: WNL Peripheral Pulses WNL: Yes Peripheral Pulses: Left Doralis Pedis: 2+, Right Dorsalis Pedis: 2+ Edema: No Neurological: Yes: Alert, Oriented, Cran Nerves II-XII Intact. No: Confusion, Facial Droop ...Motor Strength: Yes: WNL Psychiatric: Yes: Alert, Oriented Labs Lab Results: CBC, BMP 09/01/17 06:35 09/01/17 06:35 Assessment/Plan Assessment/ Plan: Patient is a 47 year old female with past medical hx of endometrial and breat cancer that is admitted for neutropenia with fever, SOB, cough and tachycardia. # Neutropenic Fever - ANC 693 - WBC increased to 1.5 from 1.1 - ID Dr. Vargas on board - Continue cefepime 2gm as per ID - legionella and strep pneumo negative for source of fever - awaiting results of viral PCR - Oncology Dr. Martin on board - oncology agrees with continuation of current treatment # Transaminitis - PET scan last month negative for metastis to liver - LFTs tredning down but still elevated - R/O liver as possible soure of infection - RUQ ultrasound completed awaiting read # Headache - Start Tylenol with codeine PRN # Cough - most likely secondary to post nasal drip - continue claritin - Start robutussin F/E/N - Nuetropenic diet - Electrolytes WNL - reduced N/S to 75 ml/hr DVT - Lovonox SQ
--- NOTE | 2017-09-01 16:05 | PN ---
Progress Note (short form) - Note Progress Note: Pt seen and examined. c/o cough no sputum general: NAD HEENT:,NCAT LUNGS: CTAB, no wheezes/rales/rhonchi HEART: regular rhythm, normal s1/s2, no m/r/g ABDOMEN: soft, NTND Last Vital Signs Temp Pulse Resp BP Pulse Ox 98.8 F 76 18 102/70 98 09/01/17 15:00 09/01/17 15:00 09/01/17 15:00 09/01/17 15:00 08/31/17 21:00 CBC, BMP 09/01/17 06:35 09/01/17 06:35 Current Medications Generic Name Dose Route Start Last Admin Trade Name Freq PRN Reason Stop Dose Admin Acetaminophen 650 mg 09/01/17 11:53 09/01/17 12:19 Tylenol - PO 650 mg Q6H PRN Administration PAIN Alprazolam 0.5 mg 08/31/17 10:00 09/01/17 09:40 Xanax - PO 0.5 mg DAILY [facility] Administration Enoxaparin Sodium 40 mg 08/31/17 10:00 09/01/17 09:40 Lovenox - SQ 40 mg DAILY [facility] Administration Guaifenesin/Codeine Phosphate 5 ml 09/01/17 11:54 09/01/17 12:19 Robitussin Ac - PO 5 ml TID PRN Administration COUGH Cefepime HCl 2 gm/ Dextrose 100 mls @ 200 mls/hr 08/31/17 18:00 09/01/17 09: 40 IVPB 200 mls/hr Q8H-IV [facility] Administration Protocol Sodium Chloride 1,000 mls @ 75 mls/hr 09/01/17 11:57 09/01/17 12:20 Normal Saline - IV 75 mls/hr ASDIR [facility] Administration Loratadine 10 mg 08/31/17 10:00 09/01/17 09:41 Claritin - PO 10 mg DAILY [facility] Administration Vitamin A/Vitamin D 1 applic 09/01/17 12:00 09/01/17 13:13 Vitamin A & D Top Oint - TP 1 applic BID [facility] Administration 47yo woman with recent h/o supracervical hysterctomy for removal of fibroid 2017, pathology showed uterine cancer with + margins per patient, s/p resection of cervix and BSO in 07/05. Also she was diagnosed just around that time with bilateral breast Ca ( noted palpable lump in lt. breast). She started AC in mid July and is currently C3,D9, and presents with 1x fever , cough, and shortness of breath. Patient's received Neulasta and Decadron after last cycle. She is scheduled for C4 AC next week followed by [facility] Neutropenic fever ?viral daily ANC ( still <1000) c/w cefepime ID f.u noted cough: -monitor
--- NOTE | 2017-09-01 16:17 | PN ---
Teaching Attending Note Name of Resident: Rob Vail ATTENDING PHYSICIAN STATEMENT I saw and evaluated the patient. I reviewed the resident's note and discussed the case with the resident. I agree with the resident's findings and plan as documented. SUBJECTIVE: C/O dry cough No c/o dyspnea/ chest pain No c/o fever/ chills Remains neutropenic Blood c/s prelim (-) OBJECTIVE: + alopecia no mucositis cor S1S2 Lungs clear abdomen soft, non tender +ecchymotic areas UE bilaterally ASSESSMENT AND PLAN: Febrile neutropenia Breast ca Await c/s Continue cefepime Neutropenic precautions
[2017-09-02] MEDS ORDERED: PT OWN MED DRAWER 7, Y5N ONE ×3 (00:50→17:08)
[2017-09-02] MEDS: CEFEPIME 2 GM in DEXTROSE 5%-WATER 100 ML IVPB SCH ×3 (01:02→17:41)
[2017-09-02] MEDS: guaiFENesin/CODEINE 5 ML UNIT-DOSE CUPS PO PRN ×2 (05:56→09:42)
[2017-09-02 06:53] LABS: HEMATOCRIT 27.9 % (32.4-45.2); HEMOGLOBIN 9.6 GM/dL (10.7-15.3); MCH 29.8 pg (25.7-33.7); MCHC 34.3 g/dl (32.0-36.0); MEAN PLT VOLUME 7.2 fl (7.5-11.1); PLATELET COUNT 187 K/MM3 (134-434); RBC 3.21 M/mm3 (3.60-5.2); RDW 18.7 % (11.6-15.6); WHITE BLOOD COUNT 2.8 K/mm3 (4.0-10.0)
[2017-09-02 07:18] LABS: ALBUMIN 3.1 g/dl (3.4-5.0); ANION GAP 6 (8-16); BLOOD UREA NITROGEN 3 mg/dL (7-18); CALCIUM 8.2 mg/dL (8.5-10.1); CHLORIDE 108 mmol/L (98-107); CO2 28 mmol/L (21-32); GLUCOSE,RANDOM 94 mg/dL (74-106); MAGNESIUM 1.9 mg/dL (1.8-2.4); POTASSIUM 4.1 mmol/L (3.5-5.1); SODIUM 142 mmol/L (136-145)
[2017-09-02 07:23] LABS: ALK PHOS 154 U/L (45-117); BILIRUBIN,TOTAL 0.3 mg/dL (0.2-1.0); CREATININE 0.5 mg/dL (0.55-1.02); PHOSPHOROUS 3.2 mg/dL (2.5-4.9); SGOT/AST 25 U/L (15-37); SGPT/ALT 89 U/L (12-78); TOT PROT 5.9 g/dl (6.4-8.2)
[2017-09-02] MEDS: ALPRAZolam 0.25 MG TABLET PO SCH (09:42)
[2017-09-02] MEDS: ENOXAPARIN NA (PORCINE) 40 MG/0.4 ML DISP.SYRIN SQ SCH (09:42)
[2017-09-02 09:43] LABS: PLATELET ESTIMATE NORMAL
[2017-09-02] MEDS: LORATADINE 10 MG TABLET PO SCH (09:43)
[2017-09-02] MEDS: VITAMINS A AND D TOPICAL OINTMENT 60 GM TUBE TP SCH ×2 (09:43→21:08)
[2017-09-02] MEDS: SODIUM CHLORIDE 1,000 ML IV SCH (12:00)
--- NOTE | 2017-09-02 12:06 | PN ---
Progress Note, Physician History of Present Illness: ID Follow up. Patient states she feels better today; she is coughing more often now, but is still unable to bring up sputum. Patient afebrile overnight. - Current Medication List Current Medications: Active Medications Acetaminophen (Tylenol -) 650 mg PO Q6H PRN PRN Reason: PAIN Last Admin: 09/01/17 12:19 Dose: 650 mg Alprazolam (Xanax -) 0.5 mg PO DAILY [facility] Last Admin: 09/02/17 09:42 Dose: 0.5 mg Enoxaparin Sodium (Lovenox -) 40 mg SQ DAILY [facility] Last Admin: 09/02/17 09:42 Dose: 40 mg Guaifenesin/Codeine Phosphate (Robitussin Ac -) 5 ml PO TID PRN PRN Reason: COUGH Last Admin: 09/02/17 09:42 Dose: 5 ml Cefepime HCl 2 gm/ Dextrose 100 mls @ 200 mls/hr IVPB Q8H-IV [facility] PRN Reason: Protocol Last Admin: 09/02/17 09:43 Dose: 200 mls/hr Sodium Chloride (Normal Saline -) 1,000 mls @ 75 mls/hr IV ASDIR [facility] Last Admin: 09/01/17 12:20 Dose: 75 mls/hr Loratadine (Claritin -) 10 mg PO DAILY [facility] Last Admin: 09/02/17 09:43 Dose: 10 mg Vitamin A/Vitamin D (Vitamin A & D Top Oint -) 1 applic TP BID [facility] Last Admin: 09/02/17 09:43 Dose: 1 applic - Objective Vital Signs: Vital Signs Temperature 98.2 F 09/02/17 10:00 Pulse Rate 102 H 09/02/17 10:00 Respiratory Rate 18 09/02/17 10:00 Blood Pressure 110/74 09/02/17 10:00 O2 Sat by Pulse Oximetry (%) 99 09/02/17 09:00 Constitutional: Yes: Well Nourished, No Distress, Calm HENT: Yes: Atraumatic, Normocephalic Cardiovascular: Yes: Regular Rate and Rhythm, S1, S2. No: JVD, Gallop, Murmur, Rub Respiratory: Yes: Regular, CTA Bilaterally Gastrointestinal: Yes: Normal Bowel Sounds, Soft. No: Tenderness Edema: No Labs: CBC, BMP 09/02/17 05:20 09/02/17 05:20 Assessment/Plan The patient is a 47 yo f w/ PMH multiple cancers on chemo fount to have a neutropenic fever. #neutropenic fever with unclear etiology -CXR, UA negative for source. -total WBC increased 1.5 -> 2.8 -ANC 1498 today -cultures negative -c/w cefipime 2g q8h -will consider switching to a PO Quinolone in preparation for discharge. #elevated LFTs -f/u RUQ US shows fatty infiltration & no signs of infection. -case d/w Dr. Mcleod
--- NOTE | 2017-09-02 14:29 | MSN ---
Progress Note (SOAP) - Subjective Chief Complaint: Neutropenia History of Present Illness: Patient is a 47 year old female with past medical hx of endometrial cancer (S/P MELONIE/BSO in April) and Breast Ca (currently receiving doxirubicin and cyclophosphamide) who is admitted day 3 for treatment of neutropenic fever . The patient states that she has more energy and strength today compared to previous days but is complaining of more nasal congestion and cough symptoms. The patient states that she is having small amounts of clear nasal discharge b/ l from her nose and her cough is more persistent than it has been previously. The patient states that it feels like her cough can produce sputum but she has not been able to as of yet. The patient states that her previous headache has resolved and the pain she was having previously from an IV site on her right arm is improving. ROS is negative for any fever, chills, chest pain, palpitations, N/V, abdominal pain, or diarrhea. - Current Medications Current Medications: Active Medications Acetaminophen (Tylenol -) 650 mg PO Q6H PRN PRN Reason: PAIN Last Admin: 09/01/17 12:19 Dose: 650 mg Alprazolam (Xanax -) 0.5 mg PO DAILY [facility] Last Admin: 09/02/17 09:42 Dose: 0.5 mg Enoxaparin Sodium (Lovenox -) 40 mg SQ DAILY [facility] Last Admin: 09/02/17 09:42 Dose: 40 mg Guaifenesin/Codeine Phosphate (Robitussin Ac -) 5 ml PO TID PRN PRN Reason: COUGH Last Admin: 09/02/17 09:42 Dose: 5 ml Cefepime HCl 2 gm/ Dextrose 100 mls @ 200 mls/hr IVPB Q8H-IV [facility] PRN Reason: Protocol Last Admin: 09/02/17 09:43 Dose: 200 mls/hr Sodium Chloride (Normal Saline -) 1,000 mls @ 75 mls/hr IV ASDIR [facility] Last Admin: 09/01/17 12:20 Dose: 75 mls/hr Loratadine (Claritin -) 10 mg PO DAILY [facility] Last Admin: 09/02/17 09:43 Dose: 10 mg Vitamin A/Vitamin D (Vitamin A & D Top Oint -) 1 applic TP BID [facility] Last Admin: 09/02/17 09:43 Dose: 1 applic - Objective Vital Signs: Vital Signs Temperature 98.2 F 09/02/17 10:00 Pulse Rate 102 H 09/02/17 10:00 Respiratory Rate 18 09/02/17 10:00 Blood Pressure 110/74 09/02/17 10:00 O2 Sat by Pulse Oximetry (%) 99 09/02/17 09:00 Constitutional: Yes: No Distress, Calm, Thin Eyes: Yes: Conjunctiva Clear, EOM Intact, PERRL HENT: Yes: Atraumatic, Normocephalic, Nasal Congestion. No: Pharyngeal Erythema , Thrush Neck: Yes: Supple, Trachea Midline Cardiovascular: Yes: Tachycardia, S1, S2. No: Gallop, Murmur, Rub Respiratory: Yes: CTA Bilaterally (decreased inspiratory phase ) Gastrointestinal: Yes: Normal Bowel Sounds, Soft. No: Tenderness Extremities: No: Calf Tenderness Peripheral Pulses: Left Doralis Pedis: 2+, Right Dorsalis Pedis: 2+ Edema: No Neurological: Yes: Alert, Oriented Labs Lab Results: CBC, BMP 09/02/17 05:20 09/02/17 05:20 Problem List - Problems (1) Elevated LFTs Code(s): R79.89 - OTHER SPECIFIED ABNORMAL FINDINGS OF BLOOD CHEMISTRY (2) Neutropenic fever Code(s): D70.9 - NEUTROPENIA, UNSPECIFIED; R50.81 - FEVER PRESENTING WITH CONDITIONS CLASSIFIED ELSEWHERE Assessment/Plan Assessment/Plan: Patient is a 47 year old female with past medical hx of endometrial cancer and Breast cancer who is currently being treated day 3 for neutropenic fever. # Neutropenic fever - Improving, WBC increased from 1.5 to 2.8 with an ANC of 1498 - as per ID, continue cefepime 2gm as it is the preferred medication for neutropenic fever - all cultures negative to this point, awaiting final read of blood culture and Viral PCR results - consider PO flouroquinolone upon D/C # Transaminitis - Improving - AST 25, ALT 89 and ALP 154 - most likely secondary to hepatotoxic chemotherapy - RUQ ultrasound was suspicious for fatty liver vs hepatocellular pathology - hepatitis serology ordered to rule out infectious cause # Nasal Discharge - new onset this morning - most likely secondary to viral process - continue to R/O CSF leak # Cough - Symptoms not improving with current Robutussin - D/C Robutussin and start dextramethorphan for symptomatic relief # Dry Skin on scalp - does not appear based on physical exam to be infectious in origin - continue A and D ointment DVT prophylaxis - Lovenox 40mg sub q F/E/N - N/S 75 mls/hr - electrolytes WNL - neutropenic diet
--- NOTE | 2017-09-02 15:21 | PN ---
Teaching Attending Note Name of Resident: Jong Rice ATTENDING PHYSICIAN STATEMENT I saw and evaluated the patient. I reviewed the resident's note and discussed the case with the resident. I agree with the resident's findings and plan as documented. SUBJECTIVE: No fever or chills , runny nose and congestion. OBJECTIVE: NAD . Cv: RRr Lungs: CTAB Ext : no edema Abd: soft, NT, ND , NL BS ASSESSMENT AND PLAN: Unfortunate 47 y/o lady with h/o endometrial cancer s/p MELONIE/BSO and recent diagnosis of b/l breast cancer on chemo therapy who presented with fever abd is being treated fro neutropeic fever 1- Neutropenic fever. no clear source. viral ? - ANC 1400 . WBC 2.8 k . improved - follow RVP - cont Abx per ID - follow blood cx - Dextrometorphane for cough 2- Transaminitis : likely due to chemo on a back ground of tamy liver - check hepatitis panel - follow LFTS . - US with no obstruction 3- breast cancer. active chemo as out pt dispo : [facility]
--- NOTE | 2017-09-02 15:40 | PN ---
Physical Exam: SUBJECTIVE: Patient seen and examined at bedside. No acute events overnight. Today, pt states that she has "gotten most of her strength back." still c/o nonproductive cough today with rhinorrhea. Denies MCLEAN, fever, chills, SOB, or changes in urinary or bowel function. OBJECTIVE: Vital Signs Period Temp Pulse Resp BP Sys/Lilly Pulse Ox Last 24 Hr 98.2 F-98.5 F 85-102 18-20 105-110/65-80 99-99 GENERAL: The patient is awake, alert, and fully oriented, in no acute distress. HEAD: Normal with no signs of trauma. EYES: PERRL, extraocular movements intact, sclera anicteric, conjunctiva clear. ENT: Ears normal, nares patent, oropharynx clear without exudates, moist mucous membranes. +rhinorrhea NECK: Trachea midline, supple. LUNGS: Breath sounds equal, clear to auscultation bilaterally, no wheezes, no crackles, no accessory muscle use. +decreased inspiratory effort HEART: Regular rate and rhythm, S1, S2 without murmur, rub or gallop. ABDOMEN: Soft, nontender, nondistended, normoactive bowel sounds, no guarding, no rebound, no hepatosplenomegaly, no masses. UPPER EXTREMITIES: +LUE - with ecchymoses, TTP. from IV LOWER EXTREMITIES: 2+ posterior tibial pulses, warm, well-perfused, no edema. NEUROLOGICAL: Cranial nerves II through XII grossly intact. Normal speech, gait not observed. PSYCH: Normal mood, normal affect. SKIN: Warm, dry, normal turgor, +LUE with ecchymoses Laboratory Results - last 24 hr 09/02/17 09/02/17 05:20 05:20 WBC 2.8 L D RBC 3.21 L Hgb 9.6 L Hct 27.9 L MCV 87.0 MCH 29.8 MCHC 34.3 RDW 18.7 H Plt Count 187 MPV 7.2 L Total Counted 99 Neutrophils % No Result Required. Neutrophils % (Manual) 52.5 D Band Neutrophils % 1.0 Lymphocytes % No Result Required. Lymphocytes % (Manual) 28.3 D Monocytes % (Manual) 13 H Eosinophils % (Manual) 1.0 Basophils % (Manual) 2.0 Myelocytes % (Man) 1 D Promyelocytes % (Man) 0 D Blast Cells % (Manual) 0 Nucleated RBC % 2 H Metamyelocytes 1 D Platelet Estimate Normal Sodium 142 Potassium 4.1 Chloride 108 H Carbon Dioxide 28 Anion Gap 6 L BUN 3 L Creatinine 0.5 L Creat Clearance w eGFR > 60 Random Glucose 94 Calcium 8.2 L Phosphorus 3.2 Magnesium 1.9 Total Bilirubin 0.3 D AST 25 ALT 89 H Alkaline Phosphatase 154 H Total Protein 5.9 L Albumin 3.1 L Active Medications Generic Name Dose Route Start Last Admin Trade Name Freq PRN Reason Stop Dose Admin Acetaminophen 650 mg 09/01/17 11:53 09/01/17 12:19 Tylenol - PO 650 mg Q6H PRN Administration PAIN Alprazolam 0.5 mg 08/31/17 10:00 09/02/17 09:42 Xanax - PO 0.5 mg DAILY SHMUEL Administration Enoxaparin Sodium 40 mg 08/31/17 10:00 09/02/17 09:42 Lovenox - SQ 40 mg DAILY SHMUEL Administration Guaifenesin 10 ml 09/02/17 14:37 Robitussin Dm - PO Q6H PRN COUGH Cefepime HCl 2 gm/ Dextrose 100 mls @ 200 mls/hr 08/31/17 18:00 09/02/17 09: 43 IVPB 200 mls/hr Q8H-IV SHMUEL Administration Protocol Sodium Chloride 1,000 mls @ 75 mls/hr 09/01/17 11:57 09/01/17 12:20 Normal Saline - IV 75 mls/hr ASDIR SHMUEL Administration Loratadine 10 mg 08/31/17 10:00 09/02/17 09:43 Claritin - PO 10 mg DAILY SHMUEL Administration Olanzapine 5 mg 09/02/17 22:00 Zyprexa - PO HS SHMUEL Vitamin A/Vitamin D 1 applic 09/01/17 12:00 09/02/17 09:43 Vitamin A & D Top Oint - TP 1 applic BID SHMUEL Administration Microbiology 08/31/17 10:00 Urine For Antigen Detection Legionella Antigen - Final 08/31/17 10:00 Urine For Antigen Detection Streptococcus pneumoniae Antigen (M - Final 08/31/17 04:50 Nasopharyngeal Swab Respiratory Virus (PCR) - Preliminary 08/31/17 02:10 Blood - Peripheral Venous Blood Culture - Preliminary NO GROWTH OBTAINED AFTER 24 HOURS, INCUBATION TO CONTINUE FOR 4 DAYS. 08/31/17 02:10 Blood - Peripheral Venous Blood Culture - Preliminary NO GROWTH OBTAINED AFTER 24 HOURS, INCUBATION TO CONTINUE FOR 4 DAYS. Radiology 08/31/17: CXR: no acute pathology 08/31/17: CTA: there is no gross evidence of pulmonary embolus within the main pulmonary artery and its proximal bifurcations, bilaterally. minimal atelectatic changes in the right lower lobe, laterally and in the posterior costophrenic angles without evidence of focal infiltrates 09/01/17: Abd sono: mild fatty infiltration liver vs. hepatocellular disease. Correlate with liver enzymes. no gallstones, GB distended without intraluminal stones or thickening of wall. no intra or extrahepatic bile duct dilation is seen. ASSESSMENT/PLAN: 47 y/o F with PMH endometrial CA s/p MELONIE/SBO, bilateral breast CA (dx 3 months ago) on doxirubicin, cyclophosphamide, who presents to the ED c/o one day hx fever, cough, SOB. #Neutropenic fever of unclear etiology -may be 2/2 influenza, with myalgias, nonproductive cough. await resp viral PCR -initial total WBC count: 1.0, ANC 698 (08/30), 1.1>1.5 > 2.8 (ANC 1498) -oncologist at [facility] [place] -Dr. Sol Lazcano [phone] -Preliminary Legionella Ag, strep pneumo (-) -F/u resp viral PCR - prelim (-) -Blood cx (-) -urine cx (-) -ID consult - seen by Dr. Vargas -continue Cefepime 2gm IVPB q8h (Today is Day 3). will likely change to PO quinolone tomorrow -Neutropenic precautions #Nonproductive cough -Robitussin DM 10ml PO q6h PRN #sinus tach, r/o PE -CTA (-) -tele monitoring #Transaminitis -improving LFTs. AST 25, ALT 89, ALP 154 today -Hepatic sono: mild fatty infiltration of liver vs. hepatocellular dz. correlate with liver enzymes. no gallstones -may be 2/2 chemotherapy. on doxirubicin, cyclophosphamide -continue to f/u CMP -GGT (690). Elevated ALP; less likely bone mets. -F/u hepatitis panel #Hx endometrial CA s/p MELONIE/SBO, bilateral breast CA -Continue tx as per [facility]- doxirubicin, cyclophosphamide. Next cycle next wk -Heme-onc consult- Dr. Cardoso -confirmed with pharmacy, pt takes neulasta after chemo sessions, decadron for two days after each cycle -continue olanzapine 5mg PO HS #F/E/N NS 150 cc/hr Continue to monitor lytes Neutropenic diet #PPX DVT: Lovenox 40 mg SQ daily #Dispo Continued monitoring on tele Visit type - Emergency Visit Emergency Visit: No - New Patient This patient is new to me today: No - Critical Care Critical Care patient: No
--- NOTE | 2017-09-02 16:15 | PN ---
Progress Note (short form) - Note Progress Note: Pt seen and examined. +cough +congested nose no sputum general: NAD HEENT:,NCAT LUNGS: CTAB, no wheezes/rales/rhonchi HEART: regular rhythm, normal s1/s2, no m/r/g ABDOMEN: soft, NTND Last Vital Signs Temp Pulse Resp BP Pulse Ox 98.5 F 97 H 18 107/77 99 09/02/17 16:13 09/02/17 16:13 09/02/17 16:13 09/02/17 16:13 09/02/17 09:00 CBC, BMP 09/02/17 05:20 09/02/17 05:20 Current Medications Generic Name Dose Route Start Last Admin Trade Name Freq PRN Reason Stop Dose Admin Acetaminophen 650 mg 09/01/17 11:53 09/01/17 12:19 Tylenol - PO 650 mg Q6H PRN Administration PAIN Alprazolam 0.5 mg 08/31/17 10:00 09/02/17 09:42 Xanax - PO 0.5 mg DAILY SHMUEL Administration Enoxaparin Sodium 40 mg 08/31/17 10:00 09/02/17 09:42 Lovenox - SQ 40 mg DAILY SHMUEL Administration Fluticasone Propionate 1 spray 09/02/17 22:00 Flonase - NS BID SHMUEL Guaifenesin 10 ml 09/02/17 14:37 09/02/17 17:41 Robitussin Dm - PO 10 ml Q6H PRN Administration COUGH Cefepime HCl 2 gm/ Dextrose 100 mls @ 200 mls/hr 08/31/17 18:00 09/02/17 17: 41 IVPB 200 mls/hr Q8H-IV SHMUEL Administration Protocol Sodium Chloride 1,000 mls @ 75 mls/hr 09/01/17 11:57 09/02/17 12:00 Normal Saline - IV 75 mls/hr ASDIR SHMUEL Administration Loratadine 10 mg 08/31/17 10:00 09/02/17 09:43 Claritin - PO 10 mg DAILY SHMUEL Administration Olanzapine 5 mg 09/02/17 22:00 Zyprexa - PO HS SHMUEL Sodium Chloride 2 spray 09/02/17 16:26 [place] Nasal [place] - NS TID PRN NASAL CONGESTION Vitamin A/Vitamin D 1 applic 09/01/17 12:00 09/02/17 09:43 Vitamin A & D Top Oint - TP 1 applic BID SHMUEL Administration 47yo woman with recent h/o supracervical hysterctomy for removal of fibroid 2017, pathology showed uterine cancer with + margins per patient, s/p resection of cervix and BSO in 07/05. Also she was diagnosed just around that time with bilateral breast Ca ( noted palpable lump in lt. breast). She started AC in mid July and is currently C3,D10, and presents with 1x fever , cough, and shortness of breath. Patient's received Neulasta and Decadron after last cycle. She is scheduled for C4 AC next week followed by THP Neutropenic fever ?viral ANC improving today 1400. c/w cefepime ID f.u noted To ensure stability in ANC ( ANC consistently >2000) / clinical improvement. decongest nasal spray to be considered
[2017-09-02] MEDS ORDERED: SODIUM CHLORIDE NASAL SPRAY 44 ML BOTTLE NS PRN (16:26)
[2017-09-02] MEDS: guaiFENesin/D-METHORPHAN HB 10 ML UNIT-DOSE CUPS PO PRN (17:41)
[2017-09-02] MEDS: FLUTICASONE PROP 0.05% 16 GM NASAL SPRAY NS SCH (21:08)
[2017-09-02] MEDS ORDERED: OLANZapine 5 MG TABLET PO SCH (22:00)
[2017-09-03] MEDS ORDERED: PT OWN MED DRAWER 7, Y5N ONE ×3 (01:23→15:21)
[2017-09-03] MEDS: CEFEPIME 2 GM in DEXTROSE 5%-WATER 100 ML IVPB SCH ×2 (01:28→11:00)
[2017-09-03] MEDS: guaiFENesin/D-METHORPHAN HB 10 ML UNIT-DOSE CUPS PO PRN ×2 (06:33→14:08)
[2017-09-03 07:33] LABS: HEMATOCRIT 27.9 % (32.4-45.2); HEMOGLOBIN 9.6 GM/dL (10.7-15.3); MCH 29.8 pg (25.7-33.7); MCHC 34.5 g/dl (32.0-36.0); MEAN CELL VOLUME 86.4 fl (80-96); MEAN PLT VOLUME 7.6 fl (7.5-11.1); PLATELET COUNT 162 K/MM3 (134-434); RBC 3.23 M/mm3 (3.60-5.2); RDW 19.1 % (11.6-15.6); WHITE BLOOD COUNT 5.8 K/mm3 (4.0-10.0)
[2017-09-03 07:50] LABS: CHLORIDE 109 mmol/L (98-107); POTASSIUM 3.7 mmol/L (3.5-5.1); SODIUM 142 mmol/L (136-145)
[2017-09-03 07:55] LABS: ANION GAP 8 (8-16); BLOOD UREA NITROGEN 4 mg/dL (7-18); CALCIUM 8.2 mg/dL (8.5-10.1); CO2 25 mmol/L (21-32); CREATININE 0.5 mg/dL (0.55-1.02); GLUCOSE,RANDOM 106 mg/dL (74-106)
[2017-09-03 09:58] LABS: ALK PHOS 154 U/L (45-117); SGOT/AST 15 U/L (15-37); SGPT/ALT 63 U/L (12-78)
--- NOTE | 2017-09-03 10:38 | PN ---
Progress Note, Physician History of Present Illness: ID Follow up. Patient states she feels better today; she is coughing more often now, but is still unable to bring up sputum. Patient afebrile overnight. - Current Medication List Current Medications: Active Medications Acetaminophen (Tylenol -) 650 mg PO Q6H PRN PRN Reason: PAIN Last Admin: 09/01/17 12:19 Dose: 650 mg Alprazolam (Xanax -) 0.5 mg PO DAILY [facility] Last Admin: 09/02/17 09:42 Dose: 0.5 mg Enoxaparin Sodium (Lovenox -) 40 mg SQ DAILY [facility] Last Admin: 09/02/17 09:42 Dose: 40 mg Fluticasone Propionate (Flonase -) 1 spray NS BID [facility] Last Admin: 09/02/17 21:08 Dose: 1 spray Guaifenesin (Robitussin Dm -) 10 ml PO Q6H PRN PRN Reason: COUGH Last Admin: 09/03/17 06:33 Dose: 10 ml Cefepime HCl 2 gm/ Dextrose 100 mls @ 200 mls/hr IVPB Q8H-IV SHMUEL PRN Reason: Protocol Last Admin: 09/03/17 01:28 Dose: 200 mls/hr Loratadine (Claritin -) 10 mg PO DAILY [facility] Last Admin: 09/02/17 09:43 Dose: 10 mg Olanzapine (Zyprexa -) 5 mg PO HS [facility] Last Admin: 09/02/17 21:07 Dose: 5 mg Sodium Chloride ([place] Nasal [place] -) 2 spray NS TID PRN PRN Reason: NASAL CONGESTION Vitamin A/Vitamin D (Vitamin A & D Top Oint -) 1 applic TP BID [facility] Last Admin: 09/02/17 21:08 Dose: 1 applic - Objective Vital Signs: Vital Signs Temperature 98.9 F 09/03/17 06:00 Pulse Rate 105 H 09/03/17 06:00 Respiratory Rate 20 09/03/17 06:00 Blood Pressure 116/65 09/03/17 06:00 O2 Sat by Pulse Oximetry (%) 98 09/02/17 20:53 Constitutional: Yes: Well Nourished, No Distress, Calm HENT: Yes: Atraumatic, Normocephalic Cardiovascular: Yes: Regular Rate and Rhythm, S1, S2. No: JVD, Gallop, Murmur, Rub Respiratory: Yes: Regular, CTA Bilaterally Gastrointestinal: Yes: Normal Bowel Sounds, Soft Edema: No Neurological: Yes: Alert, Oriented Psychiatric: Yes: Alert, Oriented Labs: CBC, BMP 09/03/17 06:10 09/03/17 06:18 Assessment/Plan The patient is a 47 yo f w/ PMH multiple cancers on chemo found to have a neutropenic fever. #neutropenic fever with unclear etiology -total WBC increased 2.8 -> 5.8 -ANC >4000 today -cultures negative; respiratory PCR + parainfluenza virus #3 -patient stable for DC home without ABX. She is set to f/u with her oncologist at [facility] [place] on [place]ursday and will have her counts repeated then. -case d/w Dr. Mcleod
[2017-09-03] MEDS: ALPRAZolam 0.25 MG TABLET PO SCH (11:00)
[2017-09-03] MEDS: LORATADINE 10 MG TABLET PO SCH (11:00)
[2017-09-03] MEDS: ENOXAPARIN NA (PORCINE) 40 MG/0.4 ML DISP.SYRIN SQ SCH (11:01)
[2017-09-03] MEDS: FLUTICASONE PROP 0.05% 16 GM NASAL SPRAY NS SCH (11:01)
[2017-09-03] MEDS: VITAMINS A AND D TOPICAL OINTMENT 60 GM TUBE TP SCH (11:05)
--- NOTE | 2017-09-03 11:10 | PN ---
Teaching Attending Note Name of Resident: Gretchen Hunter ATTENDING PHYSICIAN STATEMENT I saw and evaluated the patient. I reviewed the resident's note and discussed the case with the resident. I agree with the resident's findings and plan as documented. SUBJECTIVE: No fever or chills. No abd pain . cont to have congestion in nose and runny nose. no SOB. cont to have dry cough . OBJECTIVE: NAD . Cv: RRR, no JVD Lungs: CTAB Ext: no edema or erythema Abd: soft, NT, ND , NL BS ASSESSMENT AND PLAN: Unfortunate 47 y/o lady with h/o endometrial cancer s/p MELONIE/BSO and recent diagnosis of b/l breast cancer on chemo therapy who presented with fever abd is being treated for neutropeic fever 1- Neutropenic fever. RVP positive for parainfluenza 3, which might be the source of her fever . - WBC 5.8 K , neutro % pending . likely ANC > 1500 - will d/w ID antibiotic coverage. - blood cx neg. -cough , likely congestion form IVF. most recent imaging with CT with no PNA, and now with resolution of fever and clinical improvement, development PNA is not suspected. dc IVF.no hypoxia or resp distress. Autodiurese 2- Transaminitis : likely due to chemo on a back ground of fatty liver - improved. - f/u hepatitis serology after dc 3- Breast cancer. active chemo as out pt. f/U with ONC dispo : will dc home this afternoon pending ANC .
--- NOTE | 2017-09-03 12:57 | MSN ---
Progress Note (SOAP) - Subjective Chief Complaint: Neutropenic Fever History of Present Illness: Patient states that she is having increased nasal congestion in comparison to yesterday with clear b/l nasal discharge. The patient also reports increased frequency of her cough symptoms with mild throat soreness but does not endorse any sputum production. Patient reports feeling stronger and more energetic today despite these symptoms. Patient denies any fever, chills, chest pain, N/V , abdominal pain, or diarrhea. - Current Medications Current Medications: Active Medications Acetaminophen (Tylenol -) 650 mg PO Q6H PRN PRN Reason: PAIN Last Admin: 09/01/17 12:19 Dose: 650 mg Alprazolam (Xanax -) 0.5 mg PO DAILY [facility] Last Admin: 09/03/17 11:00 Dose: 0.5 mg Enoxaparin Sodium (Lovenox -) 40 mg SQ DAILY [facility] Last Admin: 09/03/17 11:01 Dose: 40 mg Fluticasone Propionate (Flonase -) 1 spray NS BID [facility] Last Admin: 09/03/17 11:01 Dose: 1 spray Guaifenesin (Robitussin Dm -) 10 ml PO Q6H PRN PRN Reason: COUGH Last Admin: 09/03/17 06:33 Dose: 10 ml Cefepime HCl 2 gm/ Dextrose 100 mls @ 200 mls/hr IVPB Q8H-IV SHMUEL PRN Reason: Protocol Last Admin: 09/03/17 11:00 Dose: 200 mls/hr Loratadine (Claritin -) 10 mg PO DAILY [facility] [place] Last Admin: 09/03/17 11:00 Dose: 10 mg Olanzapine (Zyprexa -) 5 mg PO HS [facility] [place] Last Admin: 09/02/17 21:07 Dose: 5 mg Sodium Chloride ([place] Nasal [place] -) 2 spray NS TID PRN PRN Reason: NASAL CONGESTION Vitamin A/Vitamin D (Vitamin A & D Top Oint -) 1 applic TP BID [facility] Last Admin: 09/03/17 11:05 Dose: 1 applic - Objective Vital Signs: Vital Signs Temperature 98.2 F 09/03/17 10:00 Pulse Rate 68 09/03/17 10:00 Respiratory Rate 18 09/03/17 10:00 Blood Pressure 111/61 09/03/17 10:00 O2 Sat by Pulse Oximetry (%) 98 09/02/17 20:53 Constitutional: Yes: No Distress, Calm, Thin Eyes: Yes: Conjunctiva Clear, PERRL. No: Sclera Icterus HENT: Yes: Atraumatic, Normocephalic, Other (dry skin on scalp improved from previous days ) Neck: Yes: Supple, Trachea Midline Cardiovascular: Yes: Tachycardia, S1, S2 Respiratory: Yes: CTA Bilaterally (decreased inspiratory effort un changed from previous days ) Gastrointestinal: Yes: Normal Bowel Sounds, Soft. No: Palpable Mass, Tenderness , Tenderness, Rebound Musculoskeletal: Yes: Other (bruising over the left antecubital fossa that is purple with yellow boarder, improved from previous days.) Extremities: Yes: WNL Peripheral Pulses WNL: Yes Peripheral Pulses: Left Doralis Pedis: 2+, Right Dorsalis Pedis: 2+ Edema: No Neurological: Yes: Alert, Oriented Psychiatric: Yes: Alert, Oriented Labs Lab Results: CBC, BMP 09/03/17 06:10 09/03/17 06:18 Problem List - Problems (1) Elevated LFTs Code(s): R79.89 - OTHER SPECIFIED ABNORMAL FINDINGS OF BLOOD CHEMISTRY (2) Neutropenic fever Code(s): D70.9 - NEUTROPENIA, UNSPECIFIED; R50.81 - FEVER PRESENTING WITH CONDITIONS CLASSIFIED ELSEWHERE Assessment/Plan Assessment/Plan: Patient is a 47 year old female with past medical hx of endometrial cancer (s/p MELONIE/BSO in April) and breast cancer (2017) that is currently being treated day 5 for neutropenia and fever. # Neutropenic Fever - WBC 5.8, ANC 4019 - As per oncology, Patient can leave with ANC level >2000 - Viral PCR panel confirmed parainfluenza 3, suggesting viral etiology of symptoms - Cultures continue to be negative for bacterial growth. - As per ID, no need for abx on d/c - fluids stopped due to good hydration and to prevent any symptoms of fluid overload # Transaminitis - improving, AST 15, ALT 63, ALK-P 154 - still likely due to hepatotoxic effects of chemotherapy treatment # Nasal Discharge - Worsening likely due to improving immune response to viral infection - continue flonase and saline spray on d/c # Cough - Worsening likely to increased post nasal drip from nasal discharge and from improved immune response to viral infection - will continue robutussin on d/c # Dry Scalp - resolved - instruct patient to continue moistening scalp on d/c # Breast Cancer - instruct patient to f/up with oncologist to continue current treatment Dispo- - Patient is to be d/c with ID + oncology approval
[2017-09-03 13:35] LABS: ACANTHOCYTES 0; ANISOCYTOSIS 0; HELMET CELLS 0; HOWELL-JOLLY BODIES 0; MACROCYTOSIS 0; OVALOCYTE 0; PLATELET ESTIMATE DECREASED; ROULEAU 0; SICKELED CELLS 0; TARGET CELLS 0; TEAR DROP CELLS 0; TOXIC GRANULATION 0
--- NOTE | 2017-09-03 14:09 | PN ---
Progress Note (short form) - Note Progress Note: Pt seen and examined. +cough +congested nose no sputum general: NAD HEENT:,NCAT LUNGS: CTAB, no wheezes/rales/rhonchi HEART: regular rhythm, normal s1/s2, no m/r/g ABDOMEN: soft, NTND Last Vital Signs Temp Pulse Resp BP Pulse Ox 98.5 F 97 H 18 107/77 99 09/02/17 16:13 09/02/17 16:13 09/02/17 16:13 09/02/17 16:13 09/02/17 09:00 CBC, BMP 09/02/17 05:20 09/02/17 05:20 Current Medications Generic Name Dose Route Start Last Admin Trade Name Freq PRN Reason Stop Dose Admin Acetaminophen 650 mg 09/01/17 11:53 09/01/17 12:19 Tylenol - PO 650 mg Q6H PRN Administration PAIN Alprazolam 0.5 mg 08/31/17 10:00 09/02/17 09:42 Xanax - PO 0.5 mg DAILY SHMUEL Administration Enoxaparin Sodium 40 mg 08/31/17 10:00 09/02/17 09:42 Lovenox - SQ 40 mg DAILY SHMUEL Administration Fluticasone Propionate 1 spray 09/02/17 22:00 Flonase - NS BID SHMUEL Guaifenesin 10 ml 09/02/17 14:37 09/02/17 17:41 Robitussin Dm - PO 10 ml Q6H PRN Administration COUGH Cefepime HCl 2 gm/ Dextrose 100 mls @ 200 mls/hr 08/31/17 18:00 09/02/17 17: 41 IVPB 200 mls/hr Q8H-IV SHMUEL Administration Protocol Sodium Chloride 1,000 mls @ 75 mls/hr 09/01/17 11:57 09/02/17 12:00 Normal Saline - IV 75 mls/hr ASDIR SHMUEL Administration Loratadine 10 mg 08/31/17 10:00 09/02/17 09:43 Claritin - PO 10 mg DAILY SHMUEL Administration Olanzapine 5 mg 09/02/17 22:00 Zyprexa - PO HS SHMUEL Sodium Chloride 2 spray 09/02/17 16:26 [place] Nasal [place] - NS TID PRN NASAL CONGESTION Vitamin A/Vitamin D 1 applic 09/01/17 12:00 09/02/17 09:43 Vitamin A & D Top Oint - TP 1 applic BID SHMUEL Administration 47yo woman with recent h/o supracervical hysterctomy for removal of fibroid 2017, pathology showed uterine cancer with + margins per patient, s/p resection of cervix and BSO in 07/05. Also she was diagnosed just around that time with bilateral breast Ca ( noted palpable lump in lt. breast). She started AC in mid July and is currently C3,D10, and presents with 1x fever , cough, and shortness of breath. Patient's received Neulasta and Decadron after last cycle. She is scheduled for C4 AC next week followed by THP Neutropenic fever resolved ANC improved CXR- to be considered Parainflu + ID f/u- needs ?short course of abx
[2017-09-03 14:28] VITALS: BP 104/63; PULSE 98; TEMP 98.4
--- NOTE | 2017-09-03 17:21 | DS ---
Physical Exam: SUBJECTIVE: Patient seen and examined at bedside. No acute events overnight. Pt states that she feels very energized today. Still c/o nonproductive cough and stuffy nose, however in good spirits. Hopes to go home to be with children. Denies MCLEAN, fever, chills, SOB, or changes in urinary or bowel function. OBJECTIVE: Vital Signs Period Temp Pulse Resp BP Sys/Lilly Pulse Ox Last 24 Hr 98.2 F-99.0 F 68-106 18-20 98-116/57-70 98 PHYSICAL EXAM GENERAL: The patient is sitting up in bed. awake, alert, and fully oriented, in no acute distress. HEAD: Normal with no signs of trauma. EYES: PERRL, extraocular movements intact, sclera anicteric, conjunctiva clear. ENT: Ears normal, nares patent, oropharynx clear without exudates, moist mucous membranes. +mild nasal erythema, rhinorrhea NECK: Trachea midline, supple. LUNGS: Breath sounds equal, clear to auscultation bilaterally, no wheezes, no crackles, no accessory muscle use. +decreased inspiratory effort HEART: Regular rate and rhythm, S1, S2 without murmur, rub or gallop. ABDOMEN: Soft, nontender, nondistended, normoactive bowel sounds, no guarding, no rebound. EXTREMITIES: 2+ dp pulses, warm, well-perfused, no edema. +improved LUE ecchymoses NEUROLOGICAL: Cranial nerves II through XII grossly intact. Normal speech PSYCH: Positive mood, normal affect. SKIN: Warm, dry, normal turgor, no rashes or lesions noted. LABS Laboratory Results - last 24 hr 09/03/17 09/03/17 06:10 06:18 WBC 5.8 D RBC 3.23 L Hgb 9.6 L Hct 27.9 L MCV 86.4 MCH 29.8 MCHC 34.5 RDW 19.1 H Plt Count 162 MPV 7.6 Total Counted 101 Neutrophils % No Result Required. Neutrophils % (Manual) 65.3 D Band Neutrophils % 4.0 Lymphocytes % No Result Required. Lymphocytes % (Manual) 17.8 D Monocytes % (Manual) 1 L D Eosinophils % (Manual) 0.0 D Basophils % (Manual) 1.0 Myelocytes % (Man) 4 H D Promyelocytes % (Man) 0 Blast Cells % (Manual) 0 Nucleated RBC % 0 Metamyelocytes 5 H D Hypochromia 0 Toxic Granulation 0 Dohle Bodies 0 Platelet Estimate Decreased Polychromasia 0 Sodium 142 Potassium 3.7 Chloride 109 H Carbon Dioxide 25 Anion Gap 8 BUN 4 L Creatinine 0.5 L Random Glucose 106 Calcium 8.2 L AST 15 ALT 63 Alkaline Phosphatase 154 H WBC trend 08/31/17 08/31/17 09/01/17 02:10 08:51 06:35 WBC 1.0 L* 1.1 L* 1.5 L* D 09/02/17 09/03/17 05:20 06:10 WBC 2.8 L D 5.8 D Microbiology 08/31/17 10:00 Urine For Antigen Detection Legionella Antigen - Final 08/31/17 10:00 Urine For Antigen Detection Streptococcus pneumoniae Antigen (M - Final 08/31/17 04:50 Urine - Urine Clean Catch Urine Culture - Final NO GROWTH OBTAINED 08/31/17 04:50 Nasopharyngeal Swab Respiratory Virus (PCR) - Final 08/31/17 02:10 Blood - Peripheral Venous Blood Culture - Preliminary NO GROWTH OBTAINED AFTER 72 HOURS, INCUBATION TO CONTINUE FOR 2 DAYS. 08/31/17 02:10 Blood - Peripheral Venous Blood Culture - Preliminary NO GROWTH OBTAINED AFTER 72 HOURS, INCUBATION TO CONTINUE FOR 2 DAYS. Radiology 08/31/17: CXR: no acute pathology 08/31/17: CTA: there is no gross evidence of pulmonary embolus within the main pulmonary artery and its proximal bifurcations, bilaterally. minimal atelectatic changes in the right lower lobe, laterally and in the posterior costophrenic angles without evidence of focal infiltrates 09/01/17: Abd sono: mild fatty infiltration liver vs. hepatocellular disease. Correlate with liver enzymes. no gallstones, GB distended without intraluminal stones or thickening of wall. no intra or extrahepatic bile duct dilation is seen. HOSPITAL COURSE: Date of Admission:08/31/17 Date of Discharge: 09/03/17 Admit diagnosis: neutropenic fever of viral etiology 47 y/o F with recent h/o supracervical hysterctomy for removal of fibroid, pathology showed uterine cancer with + margins per patient, s/p resection of cervix and BSO as patient was diagnosed just around that time with bilateral breast Ca ( noted palpable lump in lt. breast). She started AC in mid July and is currently C3,D8, and presents with 1x fever, cough, and shortness of breath. Patient's received Neulasta and Decadron after last cycle. Patient reported feeling more tired for the past few days prior to admission. On the day of admission, she woke up with SOB, chills, unproductive cough, and generalized malaise. Patient's temperature at home was 101F. She was admitted for neutropenic fever of initially unknown etiology. While pt was on the floor, her ANC was carefully monitored, first calculated at 698, and improving well into the 1999's upon discharge. Pt was seen by ID team. Her WBC count improved as well from 1 to ~5.8. Pt was maintained initially on IVF, robitussin, flonase and underwent blood and urine cx which returned negative. Her urine was (-) for legionella ag or strep pneumo, however her nasopharyngeal PCR was (+) for parainfluenza virus 3. She completed a four day course of cefepime during her stay and is sent out with instructions of supportive care and continued follow up with her heme-onc physician at [facility]. She will have her next session of chemo this upcoming week. Minutes to complete discharge: 39 Discharge Summary Reason For Visit: FEBRILE NEUTROPENIA Condition: Improved - Instructions Diet, Activity, Other Instructions: You were in the hospital because your white blood cell count was low and you had a fever. While you were here, you had a chest x-ray done which did not reveal pneumonia, a chest scan (CTA) which showed you did not have a pulmonary embolism (clot), and you had a sonogram done of your liver which showed chronic changes ( fatty infiltrate) Your blood cultures and urine cultures were also negative for any bacterial growth. You had a nasal swab that was positive for a virus called parainfluenza. The treatment for this is largely supportive- you may drink fluids, rest and gradually increase activity as you feel better. While you were in the hospital, you were prophylactically placed on an antibiotic called cefepime, of which you completed five days. You will not need antibiotics on discharge due to viral illness. You may take Robitussin dm 10mg q6h PRN for your cough. This will be sent to your pharmacy. We would like you to follow up with your primary care physician in a week, as well as your oncologist, Dr. Sol Lazcano this week. You are due for your next chemotherapy session this week. If you develop fever, shortness of breath, or chest pain, please go to the hospital. We hope you feel better soon. hepatitis serology need to be folloewd after discharge by your doctor ( test for hepatitis ) Referrals: Dee Miller MD [Primary Care Provider] - Sol Lazcano [Non Staff, Medical] - 1 Week Disposition: HOME - Home Medications Comprehensive Discharge Medication List: Ambulatory Orders Alprazolam [Xanax] 0.5 mg PO DAILY 08/31/17 Pegfilgrastim [Neulasta] 6 mg SQ Q7D 08/31/17 Guaifenesin Dm [Robitussin Dm -] 10 ml PO Q6H PRN #1 cup 09/03/17 This patient is new to me today: No Emergency Visit: No Critical Care patient: No - Discharge Referral Referred to [facility] No
[2017-09-07 14:16] LABS: HEP.C VIRUS AB 0.1 s/co ratio (0.0-0.9)
== END 2017-09-03 16:16 | disposition home or self-care (01) | DRG 660 ==
LOC: EDBD 01:27 → JER 01:27 → JERBED 03:54 → J4W 06:58
PROVIDERS: ADMIT Internal Medicine; ATTEND Internal Medicine
DX: D70.8 Other neutropenia (principal); R50.81 Fever presenting with conditions classified elsewhere; C50.912 Malignant neoplasm of unspecified site of left female breast; C50.911 Malignant neoplasm of unspecified site of right female breast; R00.0 Tachycardia, unspecified; C54.1 Malignant neoplasm of endometrium; R79.89 Other specified abnormal findings of blood chemistry; J06.9 Acute upper respiratory infection, unspecified; R51 Headache; R05 Cough; L65.9 Nonscarring hair loss, unspecified; B34.8 Other viral infections of unspecified site; Z85.42 Personal history of malignant neoplasm of other parts of uterus
CPT/HCPCS: 36415; 71046-TC-FY; 71275-TC; 76705-TC; 80048; 80053; 80074; 81003; 82977; 83605; 83735; 84075; 84100; 84450; 84460; 84702; 84703; 85025; 87040; 87086; 87633; 87899; 93005; 93010; 99284-25; J0131; J7030

== ENCOUNTER 2019-06-26 18:33 | Emergency (ER) | payer OTHER ==
[2019-06-26 18:57] VITALS: BP 112/66; PULSE 80; TEMP 98.3; BMI 30.9
[2019-06-26] MEDS ORDERED: IBUPROFEN 600 MG TABLET (FP) PO ONE ×2 (19:20→19:25)
[2019-06-26] MEDS ORDERED: BUPIVACAINE HCL/PF 0.5% (5MG/ML) 10 ML VIAL ONE (20:33)
--- NOTE | 2019-06-26 21:40 | PDOC ---
Documentation entered by Bonine Perry SCRIBE, acting as scribe for Darío Martin MD. Darío Martin MD: This documentation has been prepared by the Katelin jenkins Maria, SCRIBE, under my direction and personally reviewed by me in its entirety. I confirm that the documentation accurately reflects all work, treatment, procedures, and medical decision making performed by me. History of Present Illness - General Chief Complaint: Injury Stated Complaint: RIGHT FOOT INJURY History Source: Patient Exam Limitations: No Limitations - History of Present Illness Initial Comments: 06/26/19 19:24 The patient is a 48 year old female with a significant past medical history of bilateral breast cancer,uterine cancer (w/ hysterectomy) and anxiety who presents to the emergency department s/p fall. As per patient she tripped and fell injuring her right foot and scraping her right knee. Denies any other injuries. Past History - Past Medical History Allergies/Adverse Reactions: Allergies Allergy/AdvReac Type Severity Reaction Status Date / Time paclitaxel [From Taxol] Allergy Severe Verified 06/26/19 18:58 cocoa Allergy Unknown Verified 06/26/19 18:58 red dye Allergy Unknown Verified 06/26/19 18:58 Home Medications: Ambulatory Orders Alprazolam [Xanax] 0.5 mg PO DAILY 08/31/17 Ascorbic Acid 06/26/19 Biotin 06/26/19 Cholecalciferol 06/26/19 Letrozole [Femara] 2.5 mg PO DAILY 06/26/19 Levothyroxine [Synthroid -] 75 mcg PO DAILY 06/26/19 Medical Marijuana 06/26/19 Oxycodone HCl/Acetaminophen [Percocet 5-325 mg Tablet] 2 tab PO Q6H PRN #12 tablet MDD 8 tabs 06/26/19 Vitamin B Complex 06/26/19 Cancer: Yes (Uterine & bilateral breasts) COPD: No Psychiatric Problems: Yes (Anxiety) - Psycho Social/Smoking Cessation Hx Smoking History: Former smoker Have you smoked in the past 12 months: No If you are a former smoker, when did you quit?: 2018 Information on smoking cessation initiated: No Hx Alcohol Use: Yes (DAILY) Drug/Substance Use Hx: Yes (MEDICAL MARIJUANA) Substance Use Type: None Hx Substance Use Treatment: No Review of Systems - Review of Systems Able to Perform ROS?: Yes Comments:: 06/26/19 19:25 GENERAL/CONSTITUTIONAL: No fever or chills. No weakness. HEAD, EYES, EARS, NOSE AND THROAT: No change in vision. No ear pain or discha rge. No sore throat. CARDIOVASCULAR: No chest pain or shortness of breath. RESPIRATORY: No cough, wheezing, or hemoptysis. GASTROINTESTINAL: No nausea, vomiting, diarrhea or constipation. GENITOURINARY: No dysuria, frequency, or change in urination. MUSCULOSKELETAL:+Right foot pain. No neck or back pain. SKIN: No rash NEUROLOGIC: No headache, vertigo, loss of consciousness, or change in strength/ sensation. ENDOCRINE: No increased thirst. No abnormal weight change. HEMATOLOGIC/LYMPHATIC: No anemia, easy bleeding, or history of blood clots. ALLERGIC/IMMUNOLOGIC: No hives or skin allergy. *Physical Exam - Vital Signs Last Vital Signs Temp Pulse Resp BP Pulse Ox 98.3 F 80 16 112/66 97 06/26/19 18:34 06/26/19 18:34 06/26/19 18:34 06/26/19 18:34 06/26/19 18:34 - Physical Exam 06/26/19 19:25 GENERAL: Awake, alert, and fully oriented, in no acute distress HEAD: No signs of trauma EYES: PERRLA, EOMI, sclera anicteric, conjunctiva clear ENT: Auricles normal inspection, hearing grossly normal, nares patent, oropharynx clear without exudates. Moist mucosa NECK: Normal ROM, supple, no lymphadenopathy, JVD, or masses LUNGS: Breath sounds equal, clear to auscultation bilaterally. No wheezes, and no crackles HEART: Regular rate and rhythm, normal S1 and S2, no murmurs, rubs or gallops ABDOMEN: Soft, nontender, normoactive bowel sounds. No guarding, no rebound. No masses EXTREMITIES:+Tenderness to palpation on 4th and 5th metatarsal. No clubbing or cyanosis. No cords, erythema. NEUROLOGICAL: Cranial nerves II through XII grossly intact. Normal speech, normal gait SKIN: Warm, Dry, normal turgor, no rashes or lesions noted. Medical Decision Making - Medical Decision Making 06/27/19 06:24 distal 5th mt fx hematoma block hard shoe analgesia ortho fu Discharge - Discharge Information Problems reviewed: Yes Clinical Impression/Diagnosis: Metatarsal fracture Qualifiers: Encounter type: initial encounter Metatarsal bone: fifth Fracture type: closed Fracture alignment: nondisplaced Laterality: right Qualified Code(s): S92.354A - Nondisplaced fracture of fifth metatarsal bone, right foot, initial encounter for closed fracture Condition: Good Disposition: HOME - Additional Discharge Information Prescriptions: Oxycodone HCl/Acetaminophen [Percocet 5-325 mg Tablet] 2 tab PO Q6H PRN #12 tablet MDD 8 tabs PRN Reason: Pain - Follow up/Referral Referrals: Juan Romero MD [Staff Physician] - Call tomorrow - Patient Discharge Instructions Patient Printed Discharge Instructions: DI for Foot Fracture - Post Discharge Activity
== END 2019-06-26 21:09 | disposition home or self-care (01) ==
LOC: FER 18:33
DX: S92.354A Nondisplaced fracture of fifth metatarsal bone, right foot, initial encounter for closed fracture (principal); W18.39XA Other fall on same level, initial encounter; Y93.89 Activity, other specified; Y92.89 Other specified places as the place of occurrence of the external cause; Z91.018 Allergy to other foods; Z91.09 Other allergy status, other than to drugs and biological substances; Z88.8 Allergy status to other drugs, medicaments and biological substances; Z85.3 Personal history of malignant neoplasm of breast; Z85.42 Personal history of malignant neoplasm of other parts of uterus; F41.9 Anxiety disorder, unspecified; Z87.891 Personal history of nicotine dependence
CPT/HCPCS: 73630-TC-RT-FY; 99283-25

== ENCOUNTER 2021-11-09 20:04 | Emergency (ER) | payer OTHER ==
[2021-11-09 20:19] VITALS: BP 112/78; PULSE 91; RESP 18; TEMP 98; BMI 29.2
[2021-11-09] MEDS ORDERED: IBUPROFEN 600 MG TABLET (FP) PO ONE ×2 (21:18→21:19)
== END 2021-11-09 21:26 | disposition home or self-care (01) ==
LOC: JERFT 20:04
DX: S92.511A Displaced fracture of proximal phalanx of right lesser toe(s), initial encounter for closed fracture (principal)
CPT/HCPCS: 73610-TC-RT-FY; 73630-TC-RT-FY; 99284-25

== ENCOUNTER 2022-03-12 23:49 | Emergency (ER) | payer OTHER ==
[2022-03-13 00:07] VITALS: BP 154/89; PULSE 100; RESP 20; TEMP 97.8; BMI 31.1
[2022-03-13] MEDS ORDERED: LIDOCAINE HCL/PF 1% SDV 5ML VIAL ONE (02:34)
[2022-03-13] MEDS ORDERED: DIPHTH,PERTUSS(ACELL),TET 0.5 ML DISP.SYRIN IM ONE ×2 (03:13→03:15)
== END 2022-03-13 03:21 | disposition home or self-care (01) ==
LOC: JER 23:49
PROC: 0HQ0XZZ Repair Scalp Skin, External Approach (ICD-10-PCS; principal; 2022-03-12)
PROC: 3E0234Z Introduction of Serum, Toxoid and Vaccine into Muscle, Percutaneous Approach (ICD-10-PCS; 2022-03-12)
DX: S01.01XA Laceration without foreign body of scalp, initial encounter (principal); W01.0XXA Fall on same level from slipping, tripping and stumbling without subsequent striking against object, initial encounter
CPT/HCPCS: 70450-TC; 72125-TC; 90471; 90715; 99284-25

== ENCOUNTER 2023-07-09 08:34 | Emergency (ER) | payer OTHER ==
[2023-07-09 08:39] VITALS: TEMP 98.3; BMI 33.8
[2023-07-09] MEDS ORDERED: KETOROLAC TROMETHAMINE 15 MG/ML VIAL ONE (09:00)
[2023-07-09] MEDS ORDERED: ONDANSETRON 4 MG/2 ML VIAL ONE (09:00)
[2023-07-09] MEDS: LACTATED RINGERS SOLUTION 1000 ML INFUS.BAG IV ONE ×2 (09:14→13:07)
[2023-07-09] MEDS: KETOROLAC TROMETHAMINE 15 MG/ML VIAL IVPUSH ONE (09:15)
[2023-07-09] MEDS: ONDANSETRON 4 MG/2 ML VIAL IVPUSH ONE (09:15)
[2023-07-09 09:21] LABS: BASO % 0.4 % (0-2.0); HEMATOCRIT 41.7 % (32.4-45.2); HEMOGLOBIN 14.6 GM/dL (10.7-15.3); LYMPH % 22.1 % (8-40); MCH 31.7 pg (25.7-33.7); MCHC 34.9 g/dl (32.0-36.0); MEAN CELL VOLUME 90.9 fl (80-96); MEAN PLT VOLUME 7.5 fl (7.5-11.1); MONO % 6.1 % (3.8-10.2); NEUT % 70.4 % (42.8-82.8); PLATELET COUNT 274 10^3/uL (134-434); RBC 4.59 M/mm3 (3.60-5.2); RDW 13.3 % (11.6-15.6); WHITE BLOOD COUNT 8.4 K/mm3 (4.0-10.0)
[2023-07-09 09:46] LABS: POTASSIUM 3.9 mmol/L (3.5-5.1)
[2023-07-09 09:48] LABS: CALCIUM 9.6 mg/dL (8.5-10.1)
[2023-07-09 09:49] LABS: ALBUMIN 4.1 g/dl (3.4-5.0); BLOOD UREA NITROGEN 14.7 mg/dL (7-18)
[2023-07-09 09:52] LABS: CREATININE 0.8 mg/dL (0.55-1.3)
[2023-07-09 09:53] LABS: TOT PROT 7.6 g/dl (6.4-8.2)
[2023-07-09 09:54] LABS: BILIRUBIN,TOTAL 0.6 mg/dL (0.2-1)
[2023-07-09 13:05] LABS: EPI CELLS 1 /uL (0-25.1); HYALINE CASTS 0 /uL (0-3.1); URINE APPEARANCE CLEAR; URINE BACTERIA 5 /uL (0-1359); URINE BILIRUBIN NEGATIVE (NEGATIVE); URINE COLOR YELLOW; URINE GLUCOSE (UA) NEGATIVE (NEGATIVE); URINE KETONE NEGATIVE (NEGATIVE); URINE LEUK ESTERASE NEGATIVE (NEGATIVE); URINE NITRITE NEGATIVE (NEGATIVE); URINE PROTEIN NEGATIVE (NEGATIVE); URINE RBC 136 /uL (0-23.9); URINE UROBILINOGEN 0.2 mg/dL (0.2-1.0); URINE WBC 2 /uL (0-25.8)
[2023-07-09 13:18] VITALS: BP 124/82; PULSE 80; RESP 19
== END 2023-07-09 13:26 | disposition home or self-care (01) ==
LOC: JER 08:34
PROC: 3E0333Z Introduction of Anti-inflammatory into Peripheral Vein, Percutaneous Approach (ICD-10-PCS; principal; 2023-07-09)
PROC: 3E033GC Introduction of Other Therapeutic Substance into Peripheral Vein, Percutaneous Approach (ICD-10-PCS; 2023-07-09)
DX: M54.50 Low back pain, unspecified (principal); N20.0 Calculus of kidney; R10.32 Left lower quadrant pain
CPT/HCPCS: 36415; 74177-TC; 80053; 81003; 83735; 84703; 85025; 87086; 99285-25; Q9967